=== PATIENT | male | born 1930 | race Caucasian/White ===

== ENCOUNTER 2016-08-06 19:50 | Observation (INO) ==
[2016-08-06 22:39] LABS: Basophils % 0.3 %; Hematocrit 50.5 % (37.5-50.1); Immature Granulocytes % 0.5 % (0-4); Lymphocytes # 1.6 K/mcL (0.6-4.6); Lymphocytes % 12.6 %; Mean Corpuscular HGB Conc 33.7 g/dL (31.6-35.5); Mean Corpuscular Hemoglobin 31.9 pg (28.0-33.3); Mean Corpuscular Volume 94.7 fL (83.0-100.0); Monocytes # 1.2 K/mcL (0.0-1.3); Monocytes % 9.7 %; Neutrophils # 9.8 K/mcL (1.6-8.9); Platelet Count 140 K/mcL (140-400); Red Blood Count 5.33 M/mcL (4.19-5.50); Red Cell Distribution Width 13.4 % (11.5-14.5); Segmented Neutrophils % 76.9 %
[2016-08-06 22:55] LABS: BUN/Creatinine Ratio 13 (6-26); Blood Urea Nitrogen 17 mg/dL (8-26); Calcium 9.2 mg/dL (8.6-10.8); Carbon Dioxide 22 mEq/L (19-29); Chloride 98 mEq/L (98-109); Glucose 139 mg/dL (70-99); Osmolality,Calculated 278 (280-300); Potassium 4.7 mEq/L (3.5-4.5); Sodium 132 mEq/L (136-145); eGFR For African Americans > 60 (> 60); eGFR For Non-African Americans 54 (> 60)
--- NOTE | 2016-08-06 23:15 | Emergency Department Note ---
Disposition Clinical Impression: Elevated troponin, Cough N&V (nausea and vomiting) Qualifiers: Vomiting type: unspecified Vomiting Intractability: non-intractable Qualified Code(s): R11.2 - Nausea with vomiting, unspecified Disposition: Admitted As Inpatient Condition: Good Time of Disposition: 01:32 General Adult HPI - General Chief complaint: ED Upper Respiratory Infection Stated complaint: Cough, unable to eat, body aches Time Seen by Provider: 08/06/16 23:01 Source: patient Nursing Notes Reviewed: Yes Vital Signs Reviewed: Yes - History of Present Illness HPI Narrative: 85-year-old male nonsmoker complains of one-week of cough, congestion and nausea and vomiting. He mentions during this time he has "lost his energy" has felt more weak. He describes feeling feverish and having chills. He describes his cough is nonproductive. He is accompanied by his daughter, who states that he appears to be more tired but she does not describe any worsening confusion. He denies any chest pain, diaphoresis, shortness of breath, extremity or neck pain, abdominal pain, bladder or bowel issues. Pain Scale: 0 - Related Data Allergies Allergy/AdvReac Type Severity Reaction Status Date / Time No Known Allergies Allergy Verified 08/06/16 20:25 All systems ED: reviewed and negative except as stated. Constitutional: Reports: chills, weakness Eyes: Denies: eye discharge ENT ED: Denies: ear pain, throat pain Cardiovascular: Denies: chest pain, palpitations Respiratory: Reports: as per HPI. Denies: wheezes, hemoptysis, stridor, sputum production Gastrointestinal: Reports: nausea, vomiting. Denies: diarrhea, constipation Genitourinary: Denies: dysuria Musculoskeletal: Denies: back pain, neck pain Integumentary: Denies: rash Neurological: Reports: as per HPI. Denies: headache Psychiatric: Reports: as per HPI Endocrine: Reports: as per HPI Hematological/Lymphatic: Reports: as per HPI Past Medical History - Past Medical History Medical history: Reports: coronary artery disease, hypertension Psychiatric history: Reports: no psych history - Social History Smoking Status: Never smoker Alcohol use: Reports: none Drug use: Reports: none Physical Exam - General General appearance: alert, in no apparent distress - Chest Chest inspection: Present: normal inspection - Respiratory Respiratory exam: Present: normal lung sounds bilaterally. Absent: respiratory distress, wheezes, stridor, accessory muscle use - Cardiovascular Cardiovascular exam: Present: regular rate, normal rhythm. Absent: bradycardia - Abdominal Exam Abdominal exam: Present: soft, Non-Tender - Extremities Exam Extremities exam: Present: normal inspection, full ROM, normal capillary refill. Absent: pedal edema - Back Exam Back exam: Present: normal inspection, full ROM. Absent: tenderness - Neurological Exam Neurological exam: Present: alert - Expanded Neurological Exam Patient oriented to: Present: person, place - Psychiatric Psychiatric exam: Present: normal affect, normal mood - Skin Skin exam: Present: warm, dry, intact, normal color. Absent: rash, cyanosis, diaphoresis, erythema, pallor, mottled, other Course Course Narrative: 85-year-old male nonsmoker presents from home with one week of weakness cough congestion nausea and vomiting and feeling feverish. Patient seen and examined, he does not appear in acute distress, does not look toxic. He is resting comfortably on exam bed, no labored breathing. On examination patient is a well-developed well-nourished elderly male, he is very pleasant and is admitted. He is alert and oriented to self and location, he is not sure what it is, but states that this is because he is old and has no schedule commitments. There is no cyanosis or diaphoresis. Lung sounds are coarse, with mild bilateral wheezing. Heart regular rate and rhythm. Abdomen soft and nontender with normal bowel sounds. Pelvis stable and nontender to palpation and compression. No gross focal neurological deficits, or concerning altered mental status. No extremity edema. Workup has been ordered. No ST changes on EKG in triage. - Reevaluation(s) Reevaluation #1: Labwork shows hyperkalemia however patient has had elevated potassium in the past. His sodium today is 132. Patient does have an elevated troponin. However his creatinine is also elevated at 1.26. Patient denies any history of lung disease, diabetes or chronic kidney disease, chest pain, diaphoresis, shortness of breath. Past medical history includes hypertension coronary artery disease with heart attack. Patient states he sees Dr. Victoria. Current medications included Sorbide , losartan, lovastatin, and aspirin. Aspirin and coags ordered. Discussed patient with Dr. Stanton, who agreed for admission for elevated troponin and CK, and nausea vomiting weakness Time: 00:21 Reevaluation #2: Patient had received DuoNeb, states his cough feels better. Lung sounds still coarse, wheezing improved. Vital stable. Patient has been discussed with close Dr. Stanley who had accepted patient. Time: 01:34 Vital Signs Temperature 97.6 F 08/06/16 20:19 Pulse Rate 87 08/06/16 20:19 Respiratory Rate 20 08/06/16 20:19 Blood Pressure 150/72 08/06/16 20:19 O2 Sat by Pulse Oximetry 94 L 08/06/16 20:19 Temperature 98.3 F 08/07/16 03:24 Pulse Rate 77 08/07/16 03:24 Respiratory Rate 16 08/07/16 03:24 Blood Pressure 120/65 08/07/16 03:24 O2 Sat by Pulse Oximetry 90 L 08/07/16 03:41 Oxygen Delivery Oxygen Delivery Room Air Medical Decision Making - MDM Narrative Medical decision making narrative: Patient is a 85-year-old male who presents with recent onset of weakness cough, nausea, vomiting. He did describe himself having fevers and feeling weak point where he cannot walk at home. He was seen and evaluated by myself, discussed patient with Dr. Tinoco also at this time with palpation. On exam patient was resting comfortably throughout his course in the department, his vitals in stable, and his pulse ox on arrival was 96. Fluctuated between 93 and 96 during his course here. He is a nonsmoker with no history of smoking, COPD or asthma. Hip 2 view chest x-ray which was normal. He had mild wheezing bilaterally on examination with coarse lung sounds. He did have improvement after breathing treatment. He denied any abdominal pain chest pain diaphoresis or exertional component of the symptoms, head and neck pain. Workup showed slight elevation of white blood cell count, hyperkalemia, hyponatremia, elevated creatinine, and elevated troponin. No acute changes on EKG. Patient was discussed with and accepted hospitalist service. All Lab Results (24 Hours) 08/06/16 08/06/16 08/06/16 Range/Units 22:28 22:28 22:28 WBC 12.7 H (4.3-11.1) K/mcL RBC 5.33 (4.19-5.50) M/mcL Hgb 17.0 H (12.9-16.9) g/dL Hct 50.5 H (37.5-50.1) % MCV 94.7 (83.0-100.0) fL MCH 31.9 (28.0-33.3) pg MCHC 33.7 (31.6-35.5) g/dL RDW 13.4 (11.5-14.5) % Plt Count 140 (140-400) K/mcL MPV 10.0 (9.4-12.4) fL Immature Gran % 0.5 (0-4) % Seg Neutrophils % 76.9 % Lymphocytes % 12.6 % Monocytes % 9.7 % Eosinophils % 0.0 % Basophils % 0.3 % Neutrophils # 9.8 H (1.6-8.9) K/mcL Lymphocytes # 1.6 (0.6-4.6) K/mcL Monocytes # 1.2 (0.0-1.3) K/mcL Eosinophils # 0.0 (0.0-0.6) K/mcL Basophils # 0.0 (0.0-0.2) K/mcL ESR (0-10) mm/hr PT (9.4-12.1) Seconds INR APTT (26.0-36.0) Seconds VBG pH (7.32-7.42) pH Units VBG pCO2 (41-51) mmHg VBG pO2 (25-40) mmHg VBG HCO3 (21-27) mEq/L Sodium 132 L (136-145) mEq/L Potassium 4.7 H (3.5-4.5) mEq/L Chloride 98 (98-109) mEq/L Carbon Dioxide 22 (19-29) mEq/L BUN 17 (8-26) mg/dL Creatinine 1.26 H (0.72-1.25) mg/dL Est GFR ( Amer) > 60 (> 60) Est GFR (Non-Af Amer) 54 L (> 60) BUN/Creatinine Ratio 13 (6-26) Glucose 139 H (70-99) mg/dL Calculated Osmolality 278 L (280-300) Calcium 9.2 (8.6-10.8) mg/dL Ionized Calcium (1.15-1.35) mmol/L Phosphorus (2.3-4.7) mg/dL Magnesium (1.6-2.6) mg/dL Total Bilirubin (0.2-1.2) mg/dL AST (5-34) Units/L ALT (0-55) Units/L Alkaline Phosphatase (38-126) Units/L Creatine Kinase (30-200) Units/L Troponin I 0.06 H* (0-0.03) ng/mL B-Natriuretic Peptide (0-100) pg/mL Serum Total Protein (6.0-8.3) g/dL Albumin (3.5-5.0) g/dL Globulin (2.4-3.5) g/dL Albumin/Globulin Ratio (1.1-2.2) 08/06/16 08/06/16 08/07/16 Range/Units 23:51 23:51 06:30 WBC (4.3-11.1) K/mcL RBC (4.19-5.50) M/mcL Hgb (12.9-16.9) g/dL Hct (37.5-50.1) % MCV (83.0-100.0) fL MCH (28.0-33.3) pg MCHC (31.6-35.5) g/dL RDW (11.5-14.5) % Plt Count (140-400) K/mcL MPV (9.4-12.4) fL Immature Gran % (0-4) % Seg Neutrophils % % Lymphocytes % % Monocytes % % Eosinophils % % Basophils % % Neutrophils # (1.6-8.9) K/mcL Lymphocytes # (0.6-4.6) K/mcL Monocytes # (0.0-1.3) K/mcL Eosinophils # (0.0-0.6) K/mcL Basophils # (0.0-0.2) K/mcL ESR 8 (0-10) mm/hr PT 13.3 H (9.4-12.1) Seconds INR 1.2 APTT 30.1 (26.0-36.0) Seconds VBG pH (7.32-7.42) pH Units VBG pCO2 (41-51) mmHg VBG pO2 (25-40) mmHg VBG HCO3 (21-27) mEq/L Sodium (136-145) mEq/L Potassium (3.5-4.5) mEq/L Chloride (98-109) mEq/L Carbon Dioxide (19-29) mEq/L BUN (8-26) mg/dL Creatinine (0.72-1.25) mg/dL Est GFR ( Amer) (> 60) Est GFR (Non-Af Amer) (> 60) BUN/Creatinine Ratio (6-26) Glucose (70-99) mg/dL Calculated Osmolality (280-300) Calcium (8.6-10.8) mg/dL Ionized Calcium (1.15-1.35) mmol/L Phosphorus (2.3-4.7) mg/dL Magnesium (1.6-2.6) mg/dL Total Bilirubin (0.2-1.2) mg/dL AST (5-34) Units/L ALT (0-55) Units/L Alkaline Phosphatase (38-126) Units/L Creatine Kinase (30-200) Units/L Troponin I (0-0.03) ng/mL B-Natriuretic Peptide 554 H (0-100) pg/mL Serum Total Protein (6.0-8.3) g/dL Albumin (3.5-5.0) g/dL Globulin (2.4-3.5) g/dL Albumin/Globulin Ratio (1.1-2.2) 08/07/16 08/07/16 08/07/16 Range/Units 06:30 06:30 06:30 WBC (4.3-11.1) K/mcL RBC (4.19-5.50) M/mcL Hgb (12.9-16.9) g/dL Hct (37.5-50.1) % MCV (83.0-100.0) fL MCH (28.0-33.3) pg MCHC (31.6-35.5) g/dL RDW (11.5-14.5) % Plt Count (140-400) K/mcL MPV (9.4-12.4) fL Immature Gran % (0-4) % Seg Neutrophils % % Lymphocytes % % Monocytes % % Eosinophils % % Basophils % % Neutrophils # (1.6-8.9) K/mcL Lymphocytes # (0.6-4.6) K/mcL Monocytes # (0.0-1.3) K/mcL Eosinophils # (0.0-0.6) K/mcL Basophils # (0.0-0.2) K/mcL ESR (0-10) mm/hr PT (9.4-12.1) Seconds INR APTT (26.0-36.0) Seconds VBG pH 7.31 L (7.32-7.42) pH Units VBG pCO2 61 H (41-51) mmHg VBG pO2 16 L (25-40) mmHg VBG HCO3 30.7 H (21-27) mEq/L Sodium 133 L (136-145) mEq/L Potassium 4.4 (3.5-4.5) mEq/L Chloride 98 (98-109) mEq/L Carbon Dioxide 23 (19-29) mEq/L BUN 21 (8-26) mg/dL Creatinine 1.46 H (0.72-1.25) mg/dL Est GFR ( Amer) 55 L (> 60) Est GFR (Non-Af Amer) 46 L (> 60) BUN/Creatinine Ratio 14 (6-26) Glucose 109 H (70-99) mg/dL Calculated Osmolality 280 (280-300) Calcium 9.0 (8.6-10.8) mg/dL Ionized Calcium 1.11 L (1.15-1.35) mmol/L Phosphorus 4.0 (2.3-4.7) mg/dL Magnesium 1.9 (1.6-2.6) mg/dL Total Bilirubin 1.4 H (0.2-1.2) mg/dL AST 33 (5-34) Units/L ALT 14 (0-55) Units/L Alkaline Phosphatase 73 (38-126) Units/L Creatine Kinase 543 H (30-200) Units/L Troponin I 0.06 H* (0-0.03) ng/mL B-Natriuretic Peptide (0-100) pg/mL Serum Total Protein 7.3 (6.0-8.3) g/dL Albumin 3.7 (3.5-5.0) g/dL Globulin 3.6 H (2.4-3.5) g/dL Albumin/Globulin Ratio 1.0 L (1.1-2.2) Chest X-Ray 08/06/16 20:26 IMPRESSION: 1. No acute abnormality. D/ / Moody Stanford MD / Moody Stanford MD Interpreting Provider: Moody tSanford MD - Lab Data Lab results reviewed: Yes I reviewed the patient's lab results. Result diagrams: 08/06/16 22:28 08/07/16 06:30 Lab Results 08/06/16 08/06/16 08/06/16 Range/Units 22:28 22:28 22:28 WBC 12.7 H (4.3-11.1) K/mcL RBC 5.33 (4.19-5.50) M/mcL Hgb 17.0 H (12.9-16.9) g/dL Hct 50.5 H (37.5-50.1) % MCV 94.7 (83.0-100.0) fL MCH 31.9 (28.0-33.3) pg MCHC 33.7 (31.6-35.5) g/dL RDW 13.4 (11.5-14.5) % Plt Count 140 (140-400) K/mcL MPV 10.0 (9.4-12.4) fL Immature Gran % 0.5 (0-4) % Seg Neutrophils % 76.9 % Lymphocytes % 12.6 % Monocytes % 9.7 % Eosinophils % 0.0 % Basophils % 0.3 % Neutrophils # 9.8 H (1.6-8.9) K/mcL Lymphocytes # 1.6 (0.6-4.6) K/mcL Monocytes # 1.2 (0.0-1.3) K/mcL Eosinophils # 0.0 (0.0-0.6) K/mcL Basophils # 0.0 (0.0-0.2) K/mcL PT (9.4-12.1) Seconds INR APTT (26.0-36.0) Seconds Sodium 132 L (136-145) mEq/L Potassium 4.7 H (3.5-4.5) mEq/L Chloride 98 (98-109) mEq/L Carbon Dioxide 22 (19-29) mEq/L BUN 17 (8-26) mg/dL Creatinine 1.26 H (0.72-1.25) mg/dL Est GFR ( Amer) > 60 (> 60) Est GFR (Non-Af Amer) 54 L (> 60) BUN/Creatinine Ratio 13 (6-26) Glucose 139 H (70-99) mg/dL Calculated Osmolality 278 L (280-300) Calcium 9.2 (8.6-10.8) mg/dL Troponin I 0.06 H* (0-0.03) ng/mL B-Natriuretic Peptide (0-100) pg/mL 08/06/16 08/06/16 Range/Units 23:51 23:51 WBC (4.3-11.1) K/mcL RBC (4.19-5.50) M/mcL Hgb (12.9-16.9) g/dL Hct (37.5-50.1) % MCV (83.0-100.0) fL MCH (28.0-33.3) pg MCHC (31.6-35.5) g/dL RDW (11.5-14.5) % Plt Count (140-400) K/mcL MPV (9.4-12.4) fL Immature Gran % (0-4) % Seg Neutrophils % % Lymphocytes % % Monocytes % % Eosinophils % % Basophils % % Neutrophils # (1.6-8.9) K/mcL Lymphocytes # (0.6-4.6) K/mcL Monocytes # (0.0-1.3) K/mcL Eosinophils # (0.0-0.6) K/mcL Basophils # (0.0-0.2) K/mcL PT 13.3 H (9.4-12.1) Seconds INR 1.2 APTT 30.1 (26.0-36.0) Seconds Sodium (136-145) mEq/L Potassium (3.5-4.5) mEq/L Chloride (98-109) mEq/L Carbon Dioxide (19-29) mEq/L BUN (8-26) mg/dL Creatinine (0.72-1.25) mg/dL Est GFR ( Amer) (> 60) Est GFR (Non-Af Amer) (> 60) BUN/Creatinine Ratio (6-26) Glucose (70-99) mg/dL Calculated Osmolality (280-300) Calcium (8.6-10.8) mg/dL Troponin I (0-0.03) ng/mL B-Natriuretic Peptide 554 H (0-100) pg/mL - Radiology Data Radiology results reviewed: Yes I reviewed the patient's radiology results. Normal 2 view chest x-ray, no evidence of acute cardiopulmonary concerns - EKG Data EKG #1 EKG attestation: Yes I reviewed and interpreted this EKG. EKG results narrative: Normal sinus rhythm with occasional SVPCs, ventricular rate 88 bpm, nonspecific T-wave abnormalities; no acute ST changes, EKG compared to previous from 2010 Attestation Statement - Attestation Attestation: I, Rubio Tinoco MD, personally performed a history and physical exam of the patient and discussed their management with the midlevel provicer, [employer]. I reviewed the midlevel provider's note and agree with the documented findings, medical decision making, and plan of care. 85-year-old male presents to the emergency department with a complaint of a mild cough and mild congestion for about the past week. Over the past 3-4 days he has had nausea and vomiting and not able to keep anything down. He also complains of generalized weakness over the past several days to the point that he is having difficulty walking. He denies any chest pain. No significant shortness of breath. No fever. On examination patient is a well-developed well-nourished elderly male in no acute distress. He is alert and oriented 3. There is no cyanosis or diaphoresis. Breath sounds are equal bilaterally. Heart regular. Abdomen soft and nontender with normal bowel sounds. Labs reviewed. Patient noted to have an elevated troponin. No acute changes on EKG and unchanged from prior EKGs. The hospitalist, Dr. Stanley, was consulted and accepted admission of the patient.
[2016-08-06] MEDS ORDERED: Aspirin 81 MG TAB.CHEW PO ONE (23:37)
[2016-08-06] MEDS ORDERED: *HR* Morphine 2 MG/ML SYRINGE IVP ONE (23:37)
[2016-08-06] MEDS ORDERED: Ondansetron 4 MG/2 ML VIAL IVP ONE (23:37)
[2016-08-06] MEDS ORDERED: Ipratropium/Albuterol Neb 3 ML IH ONE (23:39)
[2016-08-07 00:07] LABS: INR 1.2; Prothrombin Time 13.3 Seconds (9.4-12.1)
[2016-08-07 00:10] LABS: Activated Partial Thrombo Time 30.1 Seconds (26.0-36.0)
--- NOTE | 2016-08-07 01:40 | Internal Med History&Physical ---
Date of Encounter: 08/07/16 Time of Encounter: 03:00 Assessment and Plan (1) Body aches Current visit: Yes Status: Acute . (2) Cough Current visit: Yes Status: Acute . (3) N&V (nausea and vomiting) Current visit: Yes Status: Acute . Qualifiers: Vomiting type: unspecified Vomiting Intractability: non-intractable Qualified Code(s): R11.2 - Nausea with vomiting, unspecified (4) Malaise and fatigue Current visit: Yes Status: Acute . Internal Medicine - H&P: HPI Chief complaint: Cough. Bodyaches. Unable to eat. Admitted From: Emergency Dept Plans for Post Hospital Care: Home History of present illness: Mr. 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 Patient has experienced subjective fever, chills and nausea, vomiting during this same period of time. Has been nonproductive. Family suggests some gradually worsening confusion also present. Patient denies headache and neck ache chest pain and abdominal pain and flank pain. Vital signs noted resting hypoxemia at 93-94% on room air. Mild tachypnea at 20. Afebrile at 97.6 degrees Fahrenheit. BP 150/72 pulse 87. Auditory noted a white blood cell count of 12.7. Hemoglobin 17 hematocrit 50.5. Differential showed an increase in neutrophils. Basic metabolic panel noted a sodium of 132 potassium 4.7. BUN 17 creatinine of 1.26 GFR 54. Glucose 139 osmolality 278. Troponin 0.06. BNP 554. PT 13.6 INR 1.2 PTT 30.1. Chest x-ray demonstrated no acute active cardiopulmonary process. Bibasilar scarring noted. Cardiac silhouette is stable status post median sternotomy and CABG. No pneumothorax, pleural effusion or pulmonary vascular congestion. Osseous structures are benign. Systemic inflammatory response syndrome criteria and on that at the time of admission. Persistent upper respiratory lower respiratory complaints suggest possible community-acquired atypical or viral infectious process. Patient is not current with influenza and pneumococcal vaccinations. Sick contacts cannot be validated. Screening studies to suggest a degree of demand ischemia in myocardium with troponin elevation and associated hypoxia and possible AK I/CK D due to hypoperfusion. Hyponatremic hypoosmolality noted. Workup and treatments will proceed comprehensively. The patient was visited and interviewed and examined. Cumulative laboratory and radiographic data base will be considered and discussed. Pertinent ancillary medical records including ECW and PCI documentation when available was reviewed and considered. Given the patient's presenting concerns, past medical history, clinical findings and symptoms, he is admitted at this time will undergo further evaluation and disposition. Orders were written as per Computerized physician service order expediter system.......................................................................... .................... Consultative opinion will be sought as clinical circumstances justify. Pain management needs will be addressed. Laboratory /radiographic data base will be updated as appropriate. Studies include: Cultures blood urine sputum, pt/inr, aptt, ddimer, cardiac injury panel , BNP, UA, metabolic and hematologic panel, magnesium ,phosphorus, ionized calcium, thyroid panel, lipid profile, A1c, C-peptide, CRP, sedimentation rate, respiratory infection profile, respiratory virus panel, blood gas, lactic acid, serologies, etc. Precautions: Aspiration, fall, delirium protocol/surveillance initiated. Telemetry with continuous hemodynamic monitoring and pulse oximetry initiated. Empiric antibiotic coverage: Intravenous Rocephin and azithromycin pending culture data. Special studies: CT chest, chest x-ray, telemetry, EKG, 2D echo. Pulmonary toilet: Incentive spirometry, aerosol bronchodilator, mucolytic, antitussive, supplemental oxygen. Corticosteroid therapy. CPAP/BiPAP supplemental oxygen delivery. Aerosol Mucomyst therapy. Fluid and electrolyte repletion efforts will proceed. Careful attention to fluid balance and renal recovery will be emphasized. Avoidance of nephrotoxic exposure and adverse drug drug interaction in the setting of impaired renal function will be monitored closely. Acute coronary syndrome protocol/surveillance initiated. Includes: aspirin, statin, beta raoul, RAY inhibitor, nitrates, Lovenox, morphine, supplemental oxygen. Acute heart failure protocol/surveillance initiated. 1500-1800mls total fluid / 24hrs restriction. No added salt/cardiac diet. Strict input and output and daily weights. Gentle diuresis as tolerated per fluid balance and stable hemodynamics. DVT and PUD prophylaxis initiated: PPI therapy, intermittent pneumatic cuffs. Subcutaneous heparin/Lovenox. Early ambulation will be encouraged. Immunization updates recommended. Influenza and pneumococcal vaccinations as part of ongoing preventative healthcare recommendations strongly recommended. Smoke cessation counseling briefly addressed. Patient is a nonsmoker. Advanced care directive discussion briefly addressed. Patient does not declare any healthcare restrictions at this time. Cardiovascular risk appraisal and cardiovascular risk reduction efforts will be emphasized. Physical /occupational therapy may be counseled to evaluate patient's functional capacity and progress mobility as circumstances justify. Nutrition/dietary education counseling may be considered as circumstances justify. Outpatient medication schedules will be reviewed, confirmed and facilitated as appropriate. Reconciliation of home treatments including adjustments, substitutions and reintroduction into the treatment regimen will address necessary maintenance therapies for chronic pre-existing medical conditions. Plan of care has been reviewed and discussed in detail with the patient. Questions addressed. Hospital course dictated by clinical findings, treatment response and potential consultative interventions. Patient is a risk for further acute clinical decline due to his age, chief complaints and comorbid conditions. Condition is serious. Prognosis is guarded. CODE STATUS is full. Past Med Surg Social Fam HX - Past Medical History Source: old records reviewed Medical history: arthritis, cardiomyopathy (Isch CMP LVEF 45%), CHF, coronary artery disease, hyperlipidemia, hypertension, myocardial infarction, other Psychiatric history: no psych history - Past Surgical History Surgical History: angioplasty/stent, cholecystectomy, coronary bypass (CABG), herniorrhaphy (Right inguinal x2. ) - Social History Smoking Status: Never smoker Alcohol use: none Drug use: none Occupational status: retired Current living situation: Home, With Family Activity Level: Independent ambulation, Mostly sedentary Recent Out of Country Travel Within the Last 8 Weeks: No Exposure or Possible Exposure to Illness During Travel: No Internal Medicine - H&P: Meds Allergies No Known Allergies Allergy (Verified 08/06/16 20:25) All Systems PM: A 10-system review of systems was performed and is negative for pertinent findings except as documented above in the HPI. Patient Problems (Last Updated 08/07/16 @ 01:40 by Dayton Stanley MD) Body aches (Acute Medical) R52 Cough (Acute Medical) R05 Elevated troponin (Acute Medical) R74.8 Malaise and fatigue (Acute Medical) R53.81, R53.83 N&V (nausea and vomiting) (Acute Medical) R11.2 - Constitutional Constitutional: as per HPI, anorexia, chills, fatigue, fever(s), malaise, weakness, other, no night sweats - EENT Eyes: as per HPI, no change in vision, no discharge, no pain, no photophobia Ears: as per HPI, no ear discharge, no ear pain, no tinnitus Nose, mouth and throat: as per HPI, nasal congestion, post-nasal drip, other, no dysphagia, no nasal discharge, no neck pain, no sore throat - Cardiovascular Cardiovascular ROS IM: as per HPI, lightheadedness, other, no chest pain, no diaphoresis, no dyspnea, no palpitations, no syncope - Respiratory Respiratory: as per HPI, cough, dyspnea, dyspnea on exertion, wheezing, chest congestion, other, no hemoptysis, no stridor, no pain on inspiration, no excessive phlegm production - Gastrointestinal Gastrointestinal: as per HPI, no abdominal pain, no diarrhea, no hematemesis, no hematochezia, no melena, no nausea, no vomiting - Genitourinary Genitourinary ROS male: as per HPI - Musculoskeletal Musculoskeletal ROS IM: as per HPI - Integumentary Integumentary IM: as per HPI, no rash, no unusual bruising - Neurological Neurological ROS: as per HPI, confusion, weakness, other, no convulsions, no focal weakness, no numbness, no tingling, no tremor(s) - Psychiatric Psychiatric: as per HPI - Endocrine Endocrine IM: as per HPI - Hematologic/Lymphatic Hematologic/Lymphatic: as per HPI, other, no easy bruising - Allergic/Immunologic Allergic/Immunologic: as per HPI - Constitutional Vitals: Temp Pulse Resp BP Pulse Ox 97.6 F 89 15 158/84 93 L 08/06/16 20:19 08/07/16 01:09 08/07/16 01:09 08/07/16 01:09 08/07/16 01:09 Vital Signs Temp Pulse Resp BP Pulse Ox 08/07/16 01:09 89 15 158/84 93 L 08/07/16 01:08 89 14 135/94 93 L 08/07/16 00:58 17 98 08/06/16 22:25 87 20 150/72 94 L 08/06/16 20:19 97.6 F 87 20 150/72 94 L Intake and Output 08/06/16 08/06/16 08/07/16 15:59 23:59 07:59 Other: Weight 86.183 kg Allergies Allergy/AdvReac Type Severity Reaction Status Date / Time No Known Allergies Allergy Verified 08/06/16 20:25 General appearance: Present: mild distress, A&O X 3, answers questions appropriately - Head Head exam: Present: atraumatic, normocephalic - Eye Eye exam: Present: EOMI, PERRL, conjuntiva pink, sclera anicteric Pupils: Present: normal accommodation, PERRL - ENT ENT exam: Present: mucous membranes moist, normal oropharynx - Neck Neck exam general surgery: Present: full ROM, supple, trachea midline. Absent: lymphadenopathy - Respiratory Respiratory exam: Present: chest wall tenderness, decreased breath sounds, CTAB , wheezes. Absent: accessory muscle use, rales, rhonchi - Cardiovascular Cardiovascular exam: Present: distant heart sounds, RRR, +S1, +S2. Absent: diastolic murmur, gallop, rubs, systolic murmur - GI/Abdominal GI/Abdominal exam: Present: normal bowel sounds, soft, no peritoneal signs. Absent: distended, tenderness - Extremities Exam Extremities exam: Present: warm, radial pulses palpable and symetrical. Absent : calf tenderness, cyanotic, pedal edema - Neurological Exam Neurological exam: Present: alert, CN II-XII intact, oriented X3, no focal deficits. Absent: pronater drift, facial droop, speech deficit - Psychiatric Psychiatric exam: Present: normal affect, normal mood - Skin Skin exam: Present: dry, intact, warm Internal Med - H&P Results - Labs CBC & Chem 7: 08/06/16 22:28 08/06/16 22:28 Labs: Short CBC 08/06/16 Range/Units 22:28 WBC 12.7 H (4.3-11.1) K/mcL Hgb 17.0 H (12.9-16.9) g/dL Hct 50.5 H (37.5-50.1) % Plt Count 140 (140-400) K/mcL Neutrophils # 9.8 H (1.6-8.9) K/mcL BMP 08/06/16 22:28 Sodium 132 L Potassium 4.7 H Chloride 98 Carbon Dioxide 22 BUN 17 Creatinine 1.26 H Glucose 139 H Calcium 9.2 Cardiac Enzymes 08/06/16 Range/Units 22:28 Troponin I 0.06 H* (0-0.03) ng/mL Abnormal lab results WBC 12.7 K/mcL (4.3-11.1) H 08/06/16 22:28 Hgb 17.0 g/dL (12.9-16.9) H 08/06/16 22:28 Hct 50.5 % (37.5-50.1) H 08/06/16 22:28 Neutrophils # 9.8 K/mcL (1.6-8.9) H 08/06/16 22:28 PT 13.3 Seconds (9.4-12.1) H 08/06/16 23:51 Sodium 132 mEq/L (136-145) L 08/06/16 22:28 Potassium 4.7 mEq/L (3.5-4.5) H 08/06/16 22:28 Creatinine 1.26 mg/dL (0.72-1.25) H 08/06/16 22:28 Est GFR (Non-Af Amer) 54 (> 60) L 08/06/16 22:28 Glucose 139 mg/dL (70-99) H 08/06/16 22:28 Calculated Osmolality 278 (280-300) L 08/06/16 22:28 Troponin I 0.06 ng/mL (0-0.03) H* 08/06/16 22:28 B-Natriuretic Peptide 554 pg/mL (0-100) H 08/06/16 23:51 Laboratory Last Values WBC 12.7 K/mcL (4.3-11.1) H 08/06/16 22:28 RBC 5.33 M/mcL (4.19-5.50) 08/06/16 22:28 Hgb 17.0 g/dL (12.9-16.9) H 08/06/16 22:28 Hct 50.5 % (37.5-50.1) H 08/06/16 22:28 MCV 94.7 fL (83.0-100.0) 08/06/16 22: MCH 31.9 pg (28.0-33.3) 08/06/16 22: MCHC 33.7 g/dL (31.6-35.5) 08/06/16 22:28 RDW 13.4 % (11.5-14.5) 08/06/16 22:28 Plt Count 140 K/mcL (140-400) 08/06/16 22:28 MPV 10.0 fL (9.4-12.4) 08/06/16 22:28 Immature Gran % 0.5 % (0-4) 08/06/16 22: Seg Neutrophils % 76.9 % 08/06/16 22: Lymphocytes % 12.6 % 08/06/16 22: Monocytes % 9.7 % 08/06/16 22:28 Eosinophils % 0.0 % 08/06/16 22: Basophils % 0.3 % 08/06/16 22:28 Neutrophils # 9.8 K/mcL (1.6-8.9) H 08/06/16 22:28 Lymphocytes # 1.6 K/mcL (0.6-4.6) 08/06/16 22:28 Monocytes # 1.2 K/mcL (0.0-1.3) 08/06/16 22:28 Eosinophils # 0.0 K/mcL (0.0-0.6) 08/06/16 22:28 Basophils # 0.0 K/mcL (0.0-0.2) 08/06/16 22:28 PT 13.3 Seconds (9.4-12.1) H 08/06/16 23:51 INR 1.2 08/06/16 23:51 APTT 30.1 Seconds (26.0-36.0) 08/06/16 23:51 Sodium 132 mEq/L (136-145) L 08/06/16 22:28 Potassium 4.7 mEq/L (3.5-4.5) H 08/06/16 22:28 Chloride 98 mEq/L (98-109) 08/06/16 22:28 Carbon Dioxide 22 mEq/L (19-29) 08/06/16 22:28 BUN 17 mg/dL (8-26) 08/06/16 22:28 Creatinine 1.26 mg/dL (0.72-1.25) H 08/06/16 22:28 Est GFR ( Amer) > 60 (> 60) 08/06/16 22:28 Est GFR (Non-Af Amer) 54 (> 60) L 08/06/16 22:28 BUN/Creatinine Ratio 13 (6-26) 08/06/16 22:28 Glucose 139 mg/dL (70-99) H 08/06/16 22:28 Calculated Osmolality 278 (280-300) L 08/06/16 22:28 Calcium 9.2 mg/dL (8.6-10.8) 08/06/16 22:28 Troponin I 0.06 ng/mL (0-0.03) H* 08/06/16 22:28 B-Natriuretic Peptide 554 pg/mL (0-100) H 08/06/16 23:51 - Impressions ITS Impressions Chest X-Ray 08/06/16 20:26 IMPRESSION: 1. No acute abnormality. D/ / Moody Stanford MD / Moody Stanford MD Interpreting Provider: Moody Stanford MD - Attending Attestation Allergies No Known Allergies Allergy (Verified 08/06/16 20:25) I & O 08/04/16 08/05/16 08/06/16 08/07/16 23:59 23:59 23:59 23:59 Weight 86.183 kg Medications Discontinued Medications Albuterol/Ipratropium (Duoneb) 3 ml IH ONCE ONE PRN Reason: Protocol Stop: 08/06/16 23:40 Last Admin: 08/07/16 00:56 Dose: 3 ml Aspirin (Aspirin) 324 mg PO ONCE ONE Stop: 08/06/16 23:38 Last Admin: 08/07/16 01:11 Dose: 324 mg Morphine Sulfate (Morphine Sulfate) 2 mg IVP ONCE ONE Stop: 08/06/16 23:38 Last Admin: 08/07/16 01:10 Dose: 2 mg Ondansetron HCl (Zofran) 4 mg IVP ONCE ONE Stop: 08/06/16 23:38 Last Admin: 08/07/16 01:11 Dose: 4 mg Microbiology Results 08/06/16 20:40 Nasopharyngeal Influenza Types A,B Antigen (BEKA) - Final Orders 08/06/16 20:26 XR chest 2V [XR] Stat Mode Of Transportation: Stretcher Reason For Exam: cough, congestion, fever Order Doctor: Rubio Tinoco Exam Performed At:: [facility] ECG 12 lead ECG [ECG] Stat Mode Of Transportation: Portable Reason For Exam: cough, congestion Order Doctor: Rubio Tinoco Exam Performed At:: [facility] 08/06/16 20:27 12 lead ECG assessment [RC] NOW 08/06/16 20:40 Rapid Influenza [Influenza A/B Antigen] [VIR] Stat Comment: BEKA Source: Nasopharyngeal Specimen: Send someone from the department to collect Specimen Description: 08/06/16 22:28 CBC [Complete Blood Count] [HEME] Stat Comment: Specimen: Send someone from the department to collect Chem 7 [Basic Metabolic Panel] Stat Comment: Specimen: Send someone from the department to collect Troponin I Stat Comment: Specimen: Send someone from the department to collect 08/06/16 23:37 Cardiac monitoring [RC] .ONCE Obtain Old EKG [RC] .ONCE Saline lock [RC] .ONCE Supplemental oxygen titration [RC] .ONCE Physician Instructions: Vital Signs Assessment [RC] PROTOCOL Aspirin 324 mg PO ONCE ONE Morphine [Morphine Sulfate] 2 mg IVP ONCE ONE Ondansetron [Zofran] 4 mg IVP ONCE ONE 08/06/16 23:38 Urinalysis Reflex Cult & Micro [URIN] Stat Comment: Specimen: Pre-Collection Label 08/06/16 23:39 Ipratropium/Albuterol Neb [Duoneb] 3 ml IH ONCE ONE 08/06/16 23:51 Activated Partial Thrombo Time [COAG] Stat Comment: Specimen: Send someone from the department to collect B-Type Natriuretic Peptide Stat Comment: Specimen: Send someone from the department to collect Prothrombin Time INR [COAG] Stat Comment: Specimen: Send someone from the department to collect 08/07/16 00:[address] Stat Comment: Reason for Visit: elevated troponin, weakness Patient Problems (Last Updated 08/07/16 @ 01:32 by Gigi Philip PAC) Cough (Acute) Elevated troponin (Acute) N&V (nausea and vomiting) (Acute) Vital Signs Temp Pulse Resp BP Pulse Ox 08/07/16 01:09 89 15 158/84 93 L 08/07/16 01:08 89 14 135/94 93 L 08/07/16 00:58 17 98 08/06/16 22:25 87 20 150/72 94 L 08/06/16 20:19 97.6 F 87 20 150/72 94 L Laboratory Results 08/06/16 08/06/16 08/06/16 Range/Units 22:28 22:28 22:28 WBC 12.7 H (4.3-11.1) K/mcL RBC 5.33 (4.19-5.50) M/mcL Hgb 17.0 H (12.9-16.9) g/dL Hct 50.5 H (37.5-50.1) % MCV 94.7 (83.0-100.0) fL MCH 31.9 (28.0-33.3) pg MCHC 33.7 (31.6-35.5) g/dL RDW 13.4 (11.5-14.5) % Plt Count 140 (140-400) K/mcL MPV 10.0 (9.4-12.4) fL Immature Gran % 0.5 (0-4) % Seg Neutrophils % 76.9 % Lymphocytes % 12.6 % Monocytes % 9.7 % Eosinophils % 0.0 % Basophils % 0.3 % Neutrophils # 9.8 H (1.6-8.9) K/mcL Lymphocytes # 1.6 (0.6-4.6) K/mcL Monocytes # 1.2 (0.0-1.3) K/mcL Eosinophils # 0.0 (0.0-0.6) K/mcL Basophils # 0.0 (0.0-0.2) K/mcL PT (9.4-12.1) Seconds INR APTT (26.0-36.0) Seconds Sodium 132 L (136-145) mEq/L Potassium 4.7 H (3.5-4.5) mEq/L Chloride 98 (98-109) mEq/L Carbon Dioxide 22 (19-29) mEq/L BUN 17 (8-26) mg/dL Creatinine 1.26 H (0.72-1.25) mg/dL Est GFR ( Amer) > 60 (> 60) Est GFR (Non-Af Amer) 54 L (> 60) BUN/Creatinine Ratio 13 (6-26) Glucose 139 H (70-99) mg/dL Calculated Osmolality 278 L (280-300) Calcium 9.2 (8.6-10.8) mg/dL Troponin I 0.06 H* (0-0.03) ng/mL B-Natriuretic Peptide (0-100) pg/mL 08/06/16 08/06/16 Range/Units 23:51 23:51 WBC (4.3-11.1) K/mcL RBC (4.19-5.50) M/mcL Hgb (12.9-16.9) g/dL Hct (37.5-50.1) % MCV (83.0-100.0) fL MCH (28.0-33.3) pg MCHC (31.6-35.5) g/dL RDW (11.5-14.5) % Plt Count (140-400) K/mcL MPV (9.4-12.4) fL Immature Gran % (0-4) % Seg Neutrophils % % Lymphocytes % % Monocytes % % Eosinophils % % Basophils % % Neutrophils # (1.6-8.9) K/mcL Lymphocytes # (0.6-4.6) K/mcL Monocytes # (0.0-1.3) K/mcL Eosinophils # (0.0-0.6) K/mcL Basophils # (0.0-0.2) K/mcL PT 13.3 H (9.4-12.1) Seconds INR 1.2 APTT 30.1 (26.0-36.0) Seconds Sodium (136-145) mEq/L Potassium (3.5-4.5) mEq/L Chloride (98-109) mEq/L Carbon Dioxide (19-29) mEq/L BUN (8-26) mg/dL Creatinine (0.72-1.25) mg/dL Est GFR ( Amer) (> 60) Est GFR (Non-Af Amer) (> 60) BUN/Creatinine Ratio (6-26) Glucose (70-99) mg/dL Calculated Osmolality (280-300) Calcium (8.6-10.8) mg/dL Troponin I (0-0.03) ng/mL B-Natriuretic Peptide 554 H (0-100) pg/mL Assessments/Treatments Critical Value Reporting Start: 08/06/16 23: 28 Freq: Status: Active Document 08/06/16 23:28 TAB (Rec: 08/06/16 23:28 TAB [id number]) Critical Values Reporting Test(s) and Results trop 0.06 Time Results Received 23:25 Lab Results Repeated Back Yes Provider Notified Yes Time Provider Contacted 23:[address] Quintana Time Provider Responded 23:25 Number of Attempts to Reach Provider 1 ED URI/Sore Throat Assessment Start: 08/06/16 20: 25 Freq: Status: Complete Document 08/06/16 22:25 TAB (Rec: 08/06/16 23:14 TAB [id number]) URI/Sore Throat Sepsis Infection Criteria Present suspected infection Sepsis SIRS Criteria none Sepsis Screen No Definite Risk Sepsis Action Taken no action required Symptoms/Complaint Fever Cough Rhinorrhea Nasal Congestion Onset "about a week" Duration Constant Improves With Nothing Worsens With Nothing Able to Tolerate Fluids By Mouth No: "throwing up now, today it would stay downe\\" Associated Symptoms Rhinorrhea Nasal Congestion Sore Throat Cough Nausea Vomiting Treatments Prior to Arrival None Level Of Consciousness Awake Alert Appropriate Follows Commands Patient Orientation Person Place Name Age Date of Respiratory Depth Normal Respiratory Effort Non-Labored Respiratory Pattern Regular Cough Description Productive Frequency Intermittent Sputum Amount Scant ED Comment "sick for about a week, thought it would go away, but it keeps getting worse, can't keep anything down for the last couple of days" Patient Rounding Start: 08/06/16 20: 25 Freq: Q30M Status: Complete Document 08/06/16 22:25 TAB (Rec: 08/06/16 23:14 TAB [id number]) Patient Rounding Safety Call Light Within Reach Bed Position Low Bed Brake On Are the Floors Free From Trip Hazards? Yes Is the Room Free From Clutter? Yes Rounding Completed? Yes Patient Rounding Updated patient/family on Plan of Care Checked for Patient Positioning Patient Awake Document 08/07/16 01:08 TAB (Rec: 08/07/16 01:09 TAB [id number]) Patient Rounding Safety Call Light Within Reach Bed Position Low Bed Brake On Are the Floors Free From Trip Hazards? Yes Is the Room Free From Clutter? Yes Rounding Completed? Yes Patient Rounding Updated patient/family on Plan of Care Checked for Patient Positioning Patient Awake Document 08/07/16 01:09 TAB (Rec: 08/07/16 01:10 TAB [id number]) Patient Rounding Safety Call Light Within Reach Bed Position Low Bed Brake On Are the Floors Free From Trip Hazards? Yes Is the Room Free From Clutter? Yes Rounding Completed? Yes Patient Rounding Updated patient/family on Plan of Care Checked for Patient Positioning Patient Awake RT Respiratory Medication Delivery Start: 08/07/16 00: 58 Freq: Status: Active Document 08/07/16 00:58 JNL (Rec: 08/07/16 00:59 JNL [id number]) Respiratory Therapy Pre Assessment SPO2 (95-100) 98 Heart rate 83 Respiratory Rate 17 Oxygen Delivery Method Room Air FIO2 (%) 21 Throughout Breath Sounds Expiratory Rhonchi Treatment Modality Nebulizer Therapy Respiratory Medications Duoneb Medication Delivery Device Mask Treatment Tolerance Excellent Initial Aerosol/MDI/DPI* Yes Post RT Medication Delivery Post Heart rate 82 Post Respiratory Rate (breaths/min) 18 Throughout Post Breath Sounds Expiratory Rhonchi Treatment Outcome No Change RT Cough/Suction Cough Description Non-Productive Sputum Amount None Triage Start: 08/06/16 20: 19 Freq: Status: Active Document 08/06/16 20:19 ALS (Rec: 08/06/16 20:25 ALS [id number]) Triage Chief Complaint triage ED Upper Respiratory Infection Patient Stated Complaint cough, congestion, n/v. CASYE 3 Description of Symptoms C/O cough, congestion, n/v and feeling feverish, onset 1 week ago. General Appearance alert in no apparent distress Mode of arrival ambulatory Source patient Ebola Risk: Travel/Contact With Anyone No From Affected Area/s Has Patient Experienced Ebola Symptoms No Temperature (97.6 F-99.6 F) 97.6 F Temperature Source Oral Pulse Rate 87 Respiratory Rate 20 Blood Pressure 150/72 O2 Sat by Pulse Oximetry (95-100) 94 L Oxygen Delivery Room Air Height 1.78 m Weight 86.183 kg Weight Measurement Method Stated by Patient Pain Scale 0 Pain Scale Used Standard (1-10) Medical history coronary artery disease hypertension Female surgical history cholecystectomy Male surgical history coronary bypass (CABG) Additional surgical history PMH b/l inguinal hernia repairs Psychiatric history no psych history Smoking Status Never smoker Alcohol Use none Drug Use none Patient resides with/at Spouse Safety Concerns Feels Safe At This Time Do you currently feel hopless, have No thoughts of self harm, or thoughts of harming others History of fall in last 14 days? No Influenza vaccine up to date Yes Pneumonia vaccine up to date Yes Tetanus UTD yes Vital Signs Assessment Start: 08/06/16 20: 25 Freq: Status: Active Document 08/06/16 22:25 TAB (Rec: 08/06/16 23:14 TAB [id number]) ED Vital Signs Pain Reported No Pain Reported Pain Scale 0 Pain Scale Used Standard (1-10) Blood Pressure 150/72 Blood Pressure Location Left Arm Source Automatic Cuff Position HOB Elevated Pulse Rate 87 Rhythm Regular Strength Normal Respiratory Rate 20 Depth Normal Effort Non-Labored Pattern Regular Pulse Oximetry (95-100) 94 L Oxygen Delivery Room Air Vital Signs Assessment Start: 08/06/16 23: 37 Freq: PROTOCOL Status: Active Document 08/07/16 01:08 TAB (Rec: 08/07/16 01:09 TAB [id number]) ED Vital Signs Pain Reported No Pain Reported Pain Scale 0 Pain Scale Used Standard (1-10) Blood Pressure 135/94 Blood Pressure Location Right Arm Source Automatic Cuff Position HOB Elevated Pulse Rate 89 Rhythm Regular Strength Normal Respiratory Rate 14 Depth Normal Effort Non-Labored Pattern Regular Pulse Oximetry (95-100) 93 L Oxygen Delivery Room Air Document 08/07/16 01:09 TAB (Rec: 08/07/16 01:10 TAB [id number]) ED Vital Signs Pain Reported No Pain Reported Pain Scale 0 Pain Scale Used Standard (1-10) Blood Pressure 158/84 Blood Pressure Location Right Arm Source Automatic Cuff Position HOB Elevated Pulse Rate 89 Rhythm Regular Strength Normal Respiratory Rate 15 Depth Normal Effort Non-Labored Pattern Regular Pulse Oximetry (95-100) 93 L Oxygen Delivery Room Air Discharge Information ED Provider: Rubio Tinoco Status: Pending Admission Time Seen by Provider: 08/06/16 23:01 Condition: Triaged At: Emergency Discharge Date/Time: Emergency Discharge Disposition: Admitted As Inpatient Clinical Impression Elevated troponin Cough N&V (nausea and vomiting) Emergency Discharge Comment: Admit Intervention Last Done ED URI/Sore Throat Assessment 08/06/16 22:25 Query Result Sepsis Infection Criteria Present suspected infection Sepsis SIRS Criteria none Sepsis Screen No Definite Risk Sepsis Action Taken no action required URI/Sore Throat Symptoms/Complaint Fever Cough Rhinorrhea Nasal Congestion URI/Sore Throat Onset "about a week" URI/Sore Throat Duration Constant URI/Sore Throat Improves With Nothing URI/Sore Throat Worsens With Nothing Able to Tolerate Fluids By Mouth No: "throwing up now, today it would stay downe\\" URI/Sore Throat Associated Symptoms Rhinorrhea Nasal Congestion Sore Throat Cough Nausea Vomiting URI/Sore Throat Treatments Prior to None Arrival Level Of Consciousness Awake Alert Appropriate Follows Commands Patient Orientation Person Place Name Age Date of Respiratory Depth Normal Respiratory Effort Non-Labored Respiratory Pattern Regular Cough Description Productive Cough Frequency Intermittent Sputum Amount Scant ED Comment "sick for about a week, thought it would go away, but it keeps getting worse, can't keep anything down for the last couple of days" ED Discharge Assessment Instructions: Stand-Alone Forms: ED Satisfaction Letter Prescriptions: Visit Report - Forms: - Referrals: Gamal,Chan Underwood MD (Primary Care Provider) Radiology Results Chest X-Ray 08/06/16 20:26
[2016-08-07] MEDS ORDERED: *HR* Metoprolol 5 MG/5 ML VIAL IVP PRN (04:54)
[2016-08-07] MEDS ORDERED: Nitroglycerin 0.4 MG TAB.SUBL SL PRN (04:54)
[2016-08-07] MEDS ORDERED: Naloxone 0.4 MG/ML INJ IVP PRN (04:54)
[2016-08-07] MEDS ORDERED: *HR* Morphine 2 MG/ML SYRINGE IVP PRN (04:54)
[2016-08-07] MEDS ORDERED: methylPREDNISolone 125 MG/2 ML VIAL IVP STA (04:54)
[2016-08-07] MEDS ORDERED: Acetaminophen 325 MG TABLET PO PRN (04:54)
[2016-08-07] MEDS ORDERED: Bumetanide 1 MG/4 ML VIAL IVP ONE (04:54)
[2016-08-07] MEDS ORDERED: *HR* OxyCODONE Immed Rel 5 MG TABLET PO PRN ×2 (04:54→11:52)
[2016-08-07] MEDS ORDERED: Ondansetron 4 MG/2 ML VIAL IVP PRN (04:54)
[2016-08-07] MEDS ORDERED: Benzonatate 100 MG CAPSULE PO PRN (04:54)
[2016-08-07] MEDS ORDERED: Albuterol 2.5 MG/3 ML NEBULIZER IH PRN (04:54)
[2016-08-07] MEDS: 0.9 % Sodium Chloride 1,000 ML IVC SCH (05:36)
[2016-08-07] MEDS ORDERED: *HR* Enoxaparin 80 MG/0.8 ML SYRINGE SQ SCH (06:00)
[2016-08-07 06:48] LABS: VBG HCO3 30.7 mEq/L (21-27); VBG PH 7.31 pH Units (7.32-7.42)
[2016-08-07 06:49] LABS: Ionized Calcium 1.11 mmol/L (1.15-1.35)
[2016-08-07 07:02] LABS: Albumin 3.7 g/dL (3.5-5.0); Bilirubin,Total 1.4 mg/dL (0.2-1.2); Globulin 3.6 g/dL (2.4-3.5); Magnesium 1.9 mg/dL (1.6-2.6); Potassium 4.4 mEq/L (3.5-4.5); Total Protein 7.3 g/dL (6.0-8.3)
[2016-08-07] MEDS: Ipratropium/Albuterol Neb 3 ML IH SCH ×4 (07:35→22:08)
[2016-08-07] MEDS: Aspirin 81 MG TAB.CHEW PO SCH (08:49)
[2016-08-07] MEDS ORDERED: Bumetanide 1 MG/4 ML VIAL IVP SCH (09:00)
[2016-08-07 11:24] LABS: Adenovirus Not Detected (Not Detect); Bordetella Pertussis Not Detected (Not Detect); Chlamydophila pneumoniae Not Detected (Not Detect); Coronavirus 229E Not Detected (Not Detect); Coronavirus HKU1 Not Detected (Not Detect); Coronavirus NL63 Not Detected (Not Detect); Coronavirus OC43 Not Detected (Not Detect); Human Metapneumovirus Not Detected (Not Detect); Human Rhinovirus/Enterovirus Not Detected (Not Detect); Influenza A Subtype 2009 H1 Not Detected (Not Detect); Influenza A Untypeable Not Detected (Not Detect); Influenza B Not Detected (Not Detect); Mycoplasma pneumoniae Not Detected (Not Detect); Parainfluenza Virus 1 Not Detected (Not Detect); Parainfluenza Virus 2 Not Detected (Not Detect); Parainfluenza Virus 3 Not Detected (Not Detect); Parainfluenza Virus 4 Not Detected (Not Detect); Respiratory Syncytial Virus ***DETECTED*** (Not Detect)
--- NOTE | 2016-08-07 11:30 | ECHO - Doppler Report ---
Echocardiogram Name: Nile Jimenez Date of Study: 08/07/2016 Date: 1930 Ht: 70.0 in Medical Record#: [id number] Age: 85 Wt: 193.0 lb Gender: Male BSA: 2.06 Order #: [id number] Location: [facility] Room #: 2A24 Reading Physician: Arthur Roman MD, [facility] Chemical Laboratory Assistant: Richi Seth RN Ordering Physician: Dayton Stanley MD Primary Physician: Chan Yeung MD Indications: Acute Coronary Syndrome Impressions: Sinus rhythm with frequent PVCs. LVEF 55-60%. There is hypokinesis of the basal inferior and basal inferolateral nelson. Mild left ventricular diastolic dysfunction. Normal right ventricular size and function. Mildly dilated left atrium. Mildly dilated right atrium. No significant valvular dysfunction. No evidence of pulmonary hypertension. Left Ventricular Wall Motion: Rest Echo Findings The basal inferior and basal inferior lateral nelson were hypokinetic. All other wall segments showed normal motion. Findings: Study Quality * Technically adequate exam. ECG Findings * Sinus rhythm with frequent PVCs. Left Ventricle * LVEF 55-60%. There is hypokinesis of the basal inferior and basal inferolateral nelson. * Normal LV chamber size and wall thickness. * Mild left ventricular diastolic dysfunction. Right Ventricle * Normal right ventricular size and function. Left Atrium * Mildly dilated left atrium. Right Atrium * Mildly dilated right atrium. Aorta * Normally sized aortic root. Pericardium * There is no pericardial effusion present. IVC * The IVC was not visualized. Aortic Valve * Trileaflet aortic valve. * Mildly sclerotic aortic valve leaflets. * No aortic stenosis. * Trace aortic regurgitation. Mitral Valve * Mild mitral annular calcification * No mitral stenosis. * Trace mitral regurgitation. Tricuspid Valve * Normal tricuspid valve structure. * No tricuspid stenosis. * Trace tricuspid regurgitation. * No evidence of pulmonary hypertension. Pulmonic Valve * Normal pulmonic valve structure. * No pulmonic stenosis. * Trace pulmonic regurgitation. 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 Measurements: BP: 138/ 72 2D Normal Values RVIDd: 3.40 cm IVSd: 1.00 cm 0.6 - 1.0 cm LVIDd: 5.50 cm 3.7 - 5.6 cm LVPWd: 1.00 cm 0.6 - 1.1 cm LVIDs: 3.80 cm 1.5 - 3.6 cm AO: 3.80 cm < 4.0 cm LA volume: 78 Mitral Valve Peak E:.55 m/sec Peak A:.78 m/sec E/A Ratio:0.7 Tricuspid Valve TV Regurg Peak Grad: 29.00mmHg TV Regurg Peak Manoj: 2.70m/sec Updated by Arthur Roman MD, [facility] on 08/07/2016 11:26:45 AM electronically signed on 08/07/2016 11:27:10 AM with status of Final Wall Motion Conde: 1=Normal, 2=Hypokinesis, 3=Akinesis, 4=Dyskinesis, 5=Aneurysmal, 6=Hyperkinetic, X=Not Visualized (Blank)=Missing
--- NOTE | 2016-08-07 13:25 | Event Note ---
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 CT chest shows right upper and lower lobe groundglass opacities concerning for pneumonia and also has emphysema. Echo shows normal LVEF with wall motion abnormalities which is not new. He was seen at the bedside with the daughter. He reports much improvement than yesterday, says that he has a better appetite today, denies any nausea, vomiting. still complaints of cough but denies any chest pain or shortness of breath at this time. He will be started on IV antibiotics for community-acquired pneumonia, influenza is negative, will check sputum for Gram stain and culture. There is mild elevation of the troponin which is adynamic on repeat testing. This is probably demand ischemia in the setting of pneumonia, will not do further testing.
[2016-08-07] MEDS: Azithromycin 500 MG in D5% in Water 250 ML IVPB SCH (14:32)
[2016-08-07] MEDS: *HR* Heparin 5,000 UNIT/ML VIAL SQ SCH (17:39)
--- NOTE | 2016-08-07 18:38 | Electrocardiograph Report ---
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
[2016-08-07] MEDS ORDERED: Dextromethorphan Polistrx(12h) 30 MG/5 ML UDC PO SCH (21:00)
[2016-08-08] MEDS: Ipratropium/Albuterol Neb 3 ML IH SCH ×4 (05:15→22:31)
[2016-08-08 05:44] LABS: Chol/HDL Ratio 2.8 (0-4.9)
[2016-08-08] MEDS: *HR* Heparin 5,000 UNIT/ML VIAL SQ SCH ×2 (05:56→17:56)
[2016-08-08 06:28] LABS: Thyroid Stimulating Hormone 1.186 mcIU/mL (0.350-4.840)
[2016-08-08 08:11] LABS: Basophils % 0.2 %; Hematocrit 44.1 % (37.5-50.1); Hemoglobin 15.2 g/dL (12.9-16.9); Immature Granulocytes % 0.6 % (0-4); Immature Platelets 4.9 % (1.1-6.1); Lymphocytes # 1.3 K/mcL (0.6-4.6); Lymphocytes % 7.2 %; Mean Corpuscular HGB Conc 34.5 g/dL (31.6-35.5); Mean Corpuscular Hemoglobin 33.1 pg (28.0-33.3); Mean Corpuscular Volume 96.1 fL (83.0-100.0); Mean Platelet Volume 10.4 fL (9.4-12.4); Monocytes # 1.4 K/mcL (0.0-1.3); Monocytes % 7.3 %; Neutrophils # 15.6 K/mcL (1.6-8.9); Platelet Count 130 K/mcL (140-400); Red Blood Count 4.59 M/mcL (4.19-5.50); Red Cell Distribution Width 13.6 % (11.5-14.5); Segmented Neutrophils % 84.7 %
[2016-08-08 08:26] LABS: Calcium 8.6 mg/dL (8.6-10.8); Potassium 4.4 mEq/L (3.5-4.5)
[2016-08-08 08:50] LABS: Bilirubin,Urine Negative (Negative); Blood,Urine Negative (Negative); Clarity,Urine Clear (Clear); Color,Urine Yellow (Yellow); Glucose,Urine (UA) Normal (Normal); Ketones,Urine Negative (Negative); Leukocyte Esterase,Urine Negative (Negative); Nitrite,Urine Negative (Negative); PH,Urine 5.5 pH Units (5.0-8.0); Protein,Urine Negative (Neg-Trace); Specific Gravity,Urine 1.021 (1.010-1.025); Urobilinogen,Urine Normal (Normal)
[2016-08-08] MEDS: 0.9 % Sodium Chloride 1,000 ML IVC SCH (09:02)
[2016-08-08] MEDS: Isosorbide MONOnitrate (24 HR) 60 MG TAB.ER.24H PO SCH (09:03)
[2016-08-08] MEDS: Aspirin 81 MG TAB.CHEW PO SCH (09:04)
[2016-08-08] MEDS: Azithromycin 500 MG in D5% in Water 250 ML IVPB SCH (13:15)
--- NOTE | 2016-08-08 14:02 | Internal Med Progress Note ---
Date of Encounter: 08/07/16 Time of Encounter: 13:59 - Assessment and plan (1) RSV (respiratory syncytial virus pneumonia) Current Visit: Yes Status: Acute Assessment and plan: CT chest showed right upper and lower lobe GGO s/o pneumonia most likely 2/2 RSV positive for RSV. will continue the ceftriaxone and azithro for now. supprotive treatment for RSV pneumonia clinically improved, no fever or leucocytosis. possible dc tomm if stable (2) Community acquired pneumonia Current Visit: Yes Status: Acute Assessment and plan: as above (3) Emphysema lung Current Visit: Yes Status: Acute Assessment and plan: h/o emphysema , also evident on the CT chest continue duonebs as scheduled for today. stable for now Qualifiers: Emphysema type: unspecified Qualified Code(s): J43.9 - Emphysema, unspecified (4) Elevated troponin Current Visit: Yes Status: Acute Assessment and plan: demand ischemia in the setting of pneumonia. denies chest pain, no need for further intervention. - Time Spent With Patient 25 - 35 minutes - Subjective Interval history: seen at the bedside, report much improvement. mild cough ,denies chest pain or sob. - Constitutional Vitals: Temp Pulse Resp BP Pulse Ox 97.5 F L 74 18 93/50 92 08/08/16 11:32 08/08/16 11:32 08/08/16 11:32 08/08/16 11:32 08/08/16 11:32 General appearance: Present: A&O X 3, no acute distress, answers questions appropriately Exam: - Head Head exam: Present: atraumatic, normocephalic - Eye Eye exam: Present: EOMI, PERRL, conjuntiva pink, sclera anicteric Pupils: Present: normal accommodation, PERRL - ENT ENT exam: Present: mucous membranes moist, normal oropharynx - Neck Neck exam general surgery: Present: full ROM, supple, trachea midline. Absent: lymphadenopathy - Respiratory Respiratory exam: Present: b/l clear Absent: accessory muscle use, rales, rhonchi - Cardiovascular Cardiovascular exam: Present: distant heart sounds, RRR, +S1, +S2. Absent: diastolic murmur, gallop, rubs, systolic murmur - GI/Abdominal GI/Abdominal exam: Present: normal bowel sounds, soft, no peritoneal signs. Absent: distended, tenderness - Extremities Exam Extremities exam: Present: warm, radial pulses palpable and symetrical. Absent : calf tenderness, cyanotic, pedal edema - Neurological Exam Neurological exam: Present: alert, CN II-XII intact, oriented X3, no focal deficits. Absent: pronater drift, facial droop, speech deficit - Psychiatric Psychiatric exam: Present: normal affect, normal mood - Skin Skin exam: Present: dry, intact, warm Internal Medicine: Result - Labs CBC & Chem 7: 08/08/16 08:01 08/08/16 08:01 Labs: Short CBC 08/08/16 Range/Units 08:01 WBC 18.4 H (4.3-11.1) K/mcL Hgb 15.2 D (12.9-16.9) g/dL Hct 44.1 (37.5-50.1) % Plt Count 130 L (140-400) K/mcL Neutrophils # 15.6 H (1.6-8.9) K/mcL BMP 08/08/16 08:01 Sodium 133 L Potassium 4.4 Chloride 100 Carbon Dioxide 23 BUN 45 H D Creatinine 1.63 H Glucose 135 H Calcium 8.6 Urine 08/08/16 Range/Units 08:40 Urine Color Yellow (Yellow) Urine Clarity Clear (Clear) Urine pH 5.5 (5.0-8.0) pH Units Ur Specific [place] 1.021 (1.010-1.025) Urine Protein Negative (Neg-Trace) mg/dL Urine Glucose (UA) Normal (Normal) mg/dL - ABG Interpretation ABG results: PT/INR, D-dimer PT 13.3 Seconds (9.4-12.1) H 08/06/16 23:51 - Impressions Impressions Chest CT 08/07/16 09:30 IMPRESSION: 1. Right lower lobe ground-glass opacity and right upper lobe peribronchovascular ground-glass opacities. Differential includes pneumonia and pneumonitis. 2. Coronary artery disease and atherosclerosis. 3. Emphysema. D/ / 08/07/2016 11:27:47 Manjeet Lloyd MD / rosa elena Interpreting Provider: Manjeet Lloyd MD Consult Discharge Plan - Plan Referrals: Chan Yeung MD [Primary Care Provider] - 08/18/16 1:00 pm (Please follow up as schedule..)
[2016-08-08 15:53] LABS: Hemoglobin A1C 5.6 %
[2016-08-08 19:51] LABS: Bilirubin,Urine Negative (Negative); Blood,Urine Negative (Negative); Clarity,Urine Clear (Clear); Color,Urine Yellow (Yellow); Glucose,Urine (UA) Normal (Normal); Ketones,Urine Negative (Negative); Leukocyte Esterase,Urine Negative (Negative); Nitrite,Urine Negative (Negative); PH,Urine 5.5 pH Units (5.0-8.0); Protein,Urine Negative (Neg-Trace); Urobilinogen,Urine Normal (Normal)
[2016-08-09] MEDS: Ipratropium/Albuterol Neb 3 ML IH SCH (04:48)
[2016-08-09] MEDS: *HR* Heparin 5,000 UNIT/ML VIAL SQ SCH (05:42)
[2016-08-09 06:19] LABS: Basophils % 0.2 %; Eosinophils % 0.1 %; Hemoglobin 13.8 g/dL (12.9-16.9); Immature Granulocytes % 0.6 % (0-4); Lymphocytes % 16.8 %; Mean Corpuscular HGB Conc 33.7 g/dL (31.6-35.5); Mean Corpuscular Hemoglobin 32.4 pg (28.0-33.3); Mean Corpuscular Volume 96.2 fL (83.0-100.0); Mean Platelet Volume 10.9 fL (9.4-12.4); Monocytes # 0.9 K/mcL (0.0-1.3); Monocytes % 7.7 %; Platelet Count 137 K/mcL (140-400); Red Blood Count 4.26 M/mcL (4.19-5.50); Red Cell Distribution Width 13.6 % (11.5-14.5); Segmented Neutrophils % 74.6 %
[2016-08-09 06:44] LABS: BUN/Creatinine Ratio 36 (6-26); Blood Urea Nitrogen 42 mg/dL (8-26); Calcium 8.2 mg/dL (8.6-10.8); Carbon Dioxide 21 mEq/L (19-29); Chloride 105 mEq/L (98-109); Glucose 94 mg/dL (70-99); Osmolality,Calculated 292 (280-300); Potassium 4.1 mEq/L (3.5-4.5); Sodium 136 mEq/L (136-145); eGFR For African Americans > 60 (> 60); eGFR For Non-African Americans 59 (> 60)
[2016-08-09 07:08] VITALS: BP 122/49
--- NOTE | 2016-08-09 09:09 | Discharge Summary ---
Date of Encounter: 08/09/16 Time of Encounter: 09:05 - Discharge Diagnosis (1) RSV (respiratory syncytial virus pneumonia) Priority: Primary Status: Acute (2) Community acquired pneumonia Priority: Primary Status: Acute (3) Emphysema lung Priority: Secondary Status: Acute Qualifiers: Emphysema type: unspecified Qualified Code(s): J43.9 - Emphysema, unspecified (4) Elevated troponin Priority: Secondary Status: Acute - Discharge Medications Prescriptions: GuaiFENesin ER [Mucinex] 600 mg PO BID 14 Days Levofloxacin 750 mg PO DAILY #4 tablet Home Medications: Aspirin 325 mg PO DAILY 08/07/16 [History] Isosorbide MONOnitrate (24 HR) [Imdur] 60 mg PO DAILY 08/07/16 [History] Losartan Potassium [Cozaar] 50 mg PO DAILY 08/07/16 [History] Lovastatin 40 mg PO BID 08/07/16 [History] GuaiFENesin ER [Mucinex] 600 mg PO BID 14 Days 08/09/16 [Rx] Levofloxacin 750 mg PO DAILY #4 tablet 08/09/16 [Rx] Allergies/Adverse Reactions: Allergies No Known Allergies Allergy (Verified 08/07/16 10:01) Procedures/tests Complete & Pending: Procedures Performed prior 72 hours Category Date Time Status CT chest wo con [CT] Routine Cat Scan 08/07/16 09:30 Completed ECG 12 lead ECG [ECG] Routine Y 08/07/16 04:54 Ordered ECG 12 lead ECG [ECG] Routine Y 08/08/16 07:00 Ordered EV echocardiogram Routine Y 08/07/16 04:54 Completed Date of admission: 08/07/16 01:47 Primary care physician: Chan Yeung MD Consults: 08/07/16 04:54 Consult to Nurse Navigator [CONS] Routine Comment: Consult to Nurse Navigator [CONS] Routine Comment: 08/07/16 04:58 Consult to Occupational Therapy [CONS] Routine Comment: Evaluate, develop and implement POC Consult to Physical Therapy [CONS] Routine Comment: Evaluate, develop and implement POC Discharging clinician: Elda Bryant Anticipated date of discharge: 08/09/16 - Patient Status Disposition: Home, Self-Care Condition: Fair Functional capacity at discharge: independent ambulation Overall status at discharge: patient is back to baseline - Discharge Instructions Instructions: Upper Respiratory Infection (DC), Chronic Hypertension (DC) Follow Up With: Chan Yeung MD [Primary Care Provider] - 08/18/16 1:00 pm (Please follow up as schedule..) - Diet and Activity Activity: resume usual activities as tolerated Diet: advance to your usual diet Interval History: Patient is a 85-year-old man with medical history for CAD/PWHVt0z/PTCAstentx4/ AMI, 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 CT chest shows right upper and lower lobe groundglass opacities concerning for pneumonia and also has emphysema. Echo shows normal LVEF with wall motion abnormalities which is not new. He was started on IV antibiotics for community-acquired pneumonia, influenza is negative,. There is mild elevation of the troponin which is adynamic on repeat testing, non conerning for ACS. This is probably demand ischemia in the setting of pneumonia, no further testing. he tested positive for RSV. HE imporved clinically with iV antibiotics and supportive tx. he is being dc today in stable condition Hospital course: Mr. Jimenez is a 85 year old male Time spent discussing smoking cessation with patient: more than 10 minutes - Time Spent with Patient Total time spent providing and/or coordinating discharge services: Greater than 30 minutes - Constitutional Vitals: Temp Pulse Resp BP Pulse Ox 97.9 F 83 16 122/49 91 08/09/16 07:07 08/09/16 07:07 08/09/16 07:07 08/09/16 07:07 08/09/16 07:07 General appearance: Present: A&O X 3, no acute distress, answers questions appropriately Exam: - Head Head exam: Present: atraumatic, normocephalic - Eye Eye exam: Present: EOMI, PERRL, conjuntiva pink, sclera anicteric Pupils: Present: normal accommodation, PERRL - ENT ENT exam: Present: mucous membranes moist, normal oropharynx - Neck Neck exam general surgery: Present: full ROM, supple, trachea midline. Absent: lymphadenopathy - Respiratory Respiratory exam: Present: b/l clear Absent: accessory muscle use, rales, rhonchi - Cardiovascular Cardiovascular exam: Present: distant heart sounds, RRR, +S1, +S2. Absent: diastolic murmur, gallop, rubs, systolic murmur - GI/Abdominal GI/Abdominal exam: Present: normal bowel sounds, soft, no peritoneal signs. Absent: distended, tenderness - Extremities Exam Extremities exam: Present: warm, radial pulses palpable and symetrical. Absent : calf tenderness, cyanotic, pedal edema - Neurological Exam Neurological exam: Present: alert, CN II-XII intact, oriented X3, no focal deficits. Absent: pronater drift, facial droop, speech deficit - Psychiatric Psychiatric exam: Present: normal affect, normal mood - Skin Skin exam: Present: dry, intact, warm
[2016-08-09] MEDS: Aspirin 81 MG TAB.CHEW PO SCH (09:26)
[2016-08-09] MEDS: Isosorbide MONOnitrate (24 HR) 60 MG TAB.ER.24H PO SCH (09:26)
--- NOTE | 2016-08-10 10:02 | Electrocardiograph Report ---
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
== END 2016-08-09 10:50 | disposition home or self-care (01) ==
LOC: 2ANU 19:50 → EMEROO 19:50 → 2ANU 08-07 03:05
PROVIDERS: ADMIT Internal Medicine Endocrinology, Diabetes & Metabolism; ATTEND Internal Medicine Endocrinology, Diabetes & Metabolism

== ENCOUNTER 2017-12-04 15:53 | Inpatient (IN) ==
[2017-12-04] MEDS ORDERED: Nitroglycerin 0.4 MG TAB.SUBL SL ONE (15:58)
--- NOTE | 2017-12-04 15:59 | Emergency Department Note ---
Disposition Clinical Impression: Unstable angina pectoris Disposition: Admitted As Inpatient Condition: Fair General Adult HPI - General Stated complaint: Chest Pain Time Seen by Provider: 12/04/17 15:56 Nursing Notes Reviewed: Yes Vital Signs Reviewed: Yes - History of Present Illness HPI Narrative: 87-year-old male presents emergency department with concern for chest pain. Patient states that he had chest pain today which was similar to when he had a previous heart attack before having coronary artery bypass graft. Patient reports that it is not radiating anywhere as it did before however. Patient was given aspirin by EMS. He was also given 2 nitroglycerin en route. Patient still reporting chest pain at arrival. Reporting it to be a 6 out of 10. No fever, no nausea, no vomiting. Patient was reporting diaphoresis. - Related Data Home Medications Medication Instructions Recorded Confirmed Aspirin 325 mg PO DAILY 08/07/16 12/04/17 Isosorbide MONOnitrate (24 HR) 60 mg PO DAILY 08/07/16 12/04/17 [Imdur] Losartan Potassium [Cozaar] 50 mg PO DAILY 08/07/16 12/04/17 Lovastatin 40 mg PO BID 08/07/16 12/04/17 Allergies Allergy/AdvReac Type Severity Reaction Status Date / Time No Known Allergies Allergy Verified 12/04/17 17:30 All systems ED: reviewed and negative except as stated. Review of Systems: As Per HPI Constitutional: Denies: fever Cardiovascular: Reports: chest pain. Denies: palpitations Respiratory: Denies: cough, dyspnea Gastrointestinal: Denies: abdominal pain, nausea, vomiting Genitourinary: Denies: urgency, dysuria, frequency Musculoskeletal: Denies: back pain Integumentary: Denies: rash Neurological: Denies: headache, weakness, numbness, paresthesias Past Medical History - Past Medical History Medical history: Reports: coronary artery disease, hypertension Surgical history: Reports: angioplasty/stent, cholecystectomy, coronary bypass ( CABG), herniorrhaphy (Right inguinal x2. ) Psychiatric history: Reports: no psych history - Social History Smoking Status: Never smoker Smokeless Tobacco Status: No Alcohol use: Reports: none Drug use: Reports: none Physical Exam - General Limitations: no limitations - Head Head exam: normocephalic - Eye Eye exam: Present: EOMI - ENT ENT exam: normal oropharynx - Neck Neck exam: Present: trachea midline - Chest Chest inspection: Present: normal inspection, symmetric chest wall rise - Respiratory Respiratory exam: Present: normal lung sounds bilaterally. Absent: respiratory distress - Cardiovascular Cardiovascular exam: Present: regular rate, normal rhythm, normal heart sounds - Abdominal Exam Abdominal exam: Present: soft, Non-Tender. Absent: distention, guarding, rebound, rigidity - Extremities Exam Extremities exam: Present: normal capillary refill - Neurological Exam Neurological exam: Present: alert, oriented X3 - Psychiatric Psychiatric exam: Present: normal affect, normal mood - Skin Skin exam: Present: warm, dry, intact, normal color Course Vital Signs Temperature 97.6 F 12/04/17 15:57 Pulse Rate 80 12/04/17 15:57 Respiratory Rate 18 12/04/17 15:57 Blood Pressure 149/110 12/04/17 15:57 O2 Sat by Pulse Oximetry 97 12/04/17 15:57 Temperature 97.6 F 12/04/17 15:57 Pulse Rate 77 12/04/17 18:14 Respiratory Rate 16 12/04/17 18:14 Blood Pressure 125/86 12/04/17 18:14 O2 Sat by Pulse Oximetry 96 12/04/17 18:14 Oxygen Delivery Oxygen Delivery Room Air Medical Decision Making - MDM Narrative Medical decision making narrative: 79-year-old male presents emergency department with concern for chest pain. He was given aspirin and 2 nitroglycerin on EMS before arrival. Patient was reporting 6 out of 10 chest pain. He was given nitroglycerin, which relieved his symptoms. EKG revealed new ST depressions of 1 mm in the anterior and septal leads. This is new from previous EKG. Patient had a negative troponin. Chest x-ray interpretation by radiology did not reveal any acute cardiopulmonary process. Throughout his stay, patient started reporting increasing chest pain. We will obtain a repeat EKG, and it did not reveal any changes from the previous one. At that point, we initiated nitroglycerin drip and also gave patient fentanyl. I spoke with cardiology regarding the patient as there is concern for unstable angina. Dr. Gastelum recommended that we start low -dose heparin via ACS protocol. I spoke with the patient, who has never had a history of GI bleeds, is not complaining of any hemoptysis, hematuria, hematemesis, melena or hematochezia. Hemoglobin was within normal limits. Platelets were normal as well. INR was 1.1. Patient agreed for admission for further management of his chest pain. Spoke with the hospitalist, who agreed to accept the patient. Patient not having active chest pain at time of admission with nitroglycerin drip. Patient's vital signs were within normal limits at that time. He was not hypotensive. Chest X-Ray 12/04/17 15:59 IMPRESSION: No acute abnormality detected. D/ / Nile John MD / Nile John MD Interpreting Provider: Nile John MD Vital Signs Temperature 97.6 F 12/04/17 15:57 Pulse Rate 80 12/04/17 15:57 Respiratory Rate 18 12/04/17 15:57 Blood Pressure 149/110 12/04/17 15:57 O2 Sat by Pulse Oximetry 97 12/04/17 15:57 Temperature 97.6 F 12/04/17 15:57 Pulse Rate 77 12/04/17 18:14 Respiratory Rate 16 12/04/17 18:14 Blood Pressure 125/86 12/04/17 18:14 O2 Sat by Pulse Oximetry 96 12/04/17 18:14 Oxygen Delivery Oxygen Delivery Room Air - Lab Data Result diagrams: 12/04/17 16:06 12/04/17 16:06 Lab Results 12/04/17 12/04/17 12/04/17 Range/Units 16:06 16:06 16:06 WBC 7.7 (4.3-11.1) K/mcL RBC 4.47 (4.19-5.50) M/mcL Hgb 14.7 (12.9-16.9) g/dL Hct 43.5 (37.5-50.1) % MCV 97.3 (83.0-100.0) fL MCH 32.9 (28.0-33.3) pg MCHC 33.8 (31.6-35.5) g/dL RDW 13.5 (11.5-14.5) % Plt Count 158 (140-400) K/mcL MPV 10.2 (9.4-12.4) fL Immature Gran % 0.4 (0-4) % Seg Neutrophils % 56.8 % Lymphocytes % 30.0 % Monocytes % 9.3 % Eosinophils % 3.0 % Basophils % 0.5 % Neutrophils # 4.4 (1.6-8.9) K/mcL Lymphocytes # 2.3 (0.6-4.6) K/mcL Monocytes # 0.7 (0.0-1.3) K/mcL Eosinophils # 0.2 (0.0-0.6) K/mcL Basophils # 0.0 (0.0-0.2) K/mcL PT 12.8 H (9.4-12.1) Seconds INR 1.1 APTT 26.5 (26.0-36.0) Seconds Sodium (136-145) mEq/L Potassium (3.5-5.1) mEq/L Chloride (98-107) mEq/L Carbon Dioxide (23-29) mEq/L BUN (8-23) mg/dL Creatinine (0.70-1.30) mg/dL Est GFR ( Amer) (> 60) Est GFR (Non-Af Amer) (> 60) BUN/Creatinine Ratio (6-26) Glucose (70-105) mg/dL Calculated Osmolality (280-300) Calcium (8.6-10.3) mg/dL Troponin I (< 0.04) ng/mL B-Natriuretic Peptide 140 H (Less than 100) pg/mL 12/04/17 Range/Units 16:06 WBC (4.3-11.1) K/mcL RBC (4.19-5.50) M/mcL Hgb (12.9-16.9) g/dL Hct (37.5-50.1) % MCV (83.0-100.0) fL MCH (28.0-33.3) pg MCHC (31.6-35.5) g/dL RDW (11.5-14.5) % Plt Count (140-400) K/mcL MPV (9.4-12.4) fL Immature Gran % (0-4) % Seg Neutrophils % % Lymphocytes % % Monocytes % % Eosinophils % % Basophils % % Neutrophils # (1.6-8.9) K/mcL Lymphocytes # (0.6-4.6) K/mcL Monocytes # (0.0-1.3) K/mcL Eosinophils # (0.0-0.6) K/mcL Basophils # (0.0-0.2) K/mcL PT (9.4-12.1) Seconds INR APTT (26.0-36.0) Seconds Sodium 138 (136-145) mEq/L Potassium 4.6 (3.5-5.1) mEq/L Chloride 104 (98-107) mEq/L Carbon Dioxide 25 (23-29) mEq/L BUN 21 (8-23) mg/dL Creatinine 1.27 (0.70-1.30) mg/dL Est GFR ( Amer) > 60 (> 60) Est GFR (Non-Af Amer) 54 L (> 60) BUN/Creatinine Ratio 17 (6-26) Glucose 119 H (70-105) mg/dL Calculated Osmolality 290 (280-300) Calcium 8.8 (8.6-10.3) mg/dL Troponin I < 0.03 (< 0.04) ng/mL B-Natriuretic Peptide (Less than 100) pg/mL - EKG Data EKG #1 EKG attestation: Yes I reviewed and interpreted this EKG. EKG results narrative: 16:01 EKG #1 Ventricular rate 81 bpm, QRS duration 110 ms, QT 398 ms, QTC 435 ms, left axis deviation. Sinus rhythm with first-degree AV block. There are occasional PVCs. ST segment depressions of 1 mm noted in the anterior and septal leads. This is compared to previous study obtained on August 08, 2016. 17:13 EKG #2 Ventricular rate 77 beats for minute, QRS duration 114 ms, QT 394 ms, QTC 426 ms , left axis deviation. No changes on this EKG
--- NOTE | 2017-12-04 16:21 | Emergency Department Note ---
Disposition Clinical Impression: ACS (acute coronary syndrome) Disposition: Still a Patient General Adult HPI - General Chief complaint: ED Chest Pain Stated complaint: Chest Pain Time Seen by Provider: 12/04/17 15:56 - History of Present Illness Pain Scale: 5 - Related Data Home Medications Medication Instructions Recorded Confirmed Aspirin 325 mg PO DAILY 08/07/16 08/07/16 Isosorbide MONOnitrate (24 HR) 60 mg PO DAILY 08/07/16 08/07/16 [Imdur] Losartan Potassium [Cozaar] 50 mg PO DAILY 08/07/16 08/07/16 Lovastatin 40 mg PO BID 08/07/16 08/07/16 Previous Rx's Medication Instructions Recorded GuaiFENesin ER [Mucinex] 600 mg PO BID 14 Days tbbp.12hr 08/09/16 levoFLOXacin [Levaquin] 750 mg PO DAILY #4 tablet 08/09/16 Allergies Allergy/AdvReac Type Severity Reaction Status Date / Time No Known Allergies Allergy Verified 12/04/17 16:04 Past Medical History - Past Medical History Medical history: Reports: coronary artery disease, hypertension Surgical history: Reports: angioplasty/stent, cholecystectomy, coronary bypass ( CABG), herniorrhaphy (Right inguinal x2. ) Psychiatric history: Reports: no psych history - Social History Smoking Status: Never smoker Smokeless Tobacco Status: No Alcohol use: Reports: none Drug use: Reports: none Physical Exam - General General appearance: alert, in no apparent distress Course - Reevaluation(s) Reevaluation #1: ATTESTATION NOTE I examined this patient and my medical decision-making was reviewed with the Resident Physician, Javon Lu. I agree with the documented findings, disposition and treatment plan as described except to the extent set forth below. I have personally performed a face to face evaluation on this patient. I have reviewed and agree with the care plan. Briefly: 87-year-old male by EMS for chest pain. History of CABG. Heart scores 5. EKG shows possibly new ST depressions in the lateral leads. In the precordial leads. Patient got aspirin and nitroglycerin by EMS will get another dose of nitroglycerin here will get screening labs including troponin and chest x-ray with admission anticipated. Providing 40 minutes of critical care service for this patient. Admission disposition pending. Time: 16:19 Vital Signs Temperature 97.6 F 12/04/17 15:57 Pulse Rate 80 12/04/17 15:57 Respiratory Rate 18 12/04/17 15:57 Blood Pressure 149/110 12/04/17 15:57 O2 Sat by Pulse Oximetry 97 12/04/17 15:57 Temperature 97.6 F 12/04/17 15:57 Pulse Rate 80 12/04/17 15:57 Respiratory Rate 18 12/04/17 15:57 Blood Pressure 149/110 12/04/17 15:57 O2 Sat by Pulse Oximetry 97 12/04/17 15:57 Oxygen Delivery Oxygen Delivery Room Air
[2017-12-04 16:27] LABS: Basophils % 0.5 %; Eosinophils # 0.2 K/mcL (0.0-0.6); Hematocrit 43.5 % (37.5-50.1); Hemoglobin 14.7 g/dL (12.9-16.9); Immature Granulocytes % 0.4 % (0-4); Lymphocytes # 2.3 K/mcL (0.6-4.6); Mean Corpuscular HGB Conc 33.8 g/dL (31.6-35.5); Mean Corpuscular Hemoglobin 32.9 pg (28.0-33.3); Mean Corpuscular Volume 97.3 fL (83.0-100.0); Mean Platelet Volume 10.2 fL (9.4-12.4); Monocytes # 0.7 K/mcL (0.0-1.3); Monocytes % 9.3 %; Neutrophils # 4.4 K/mcL (1.6-8.9); Platelet Count 158 K/mcL (140-400); Red Blood Count 4.47 M/mcL (4.19-5.50); Red Cell Distribution Width 13.5 % (11.5-14.5); Segmented Neutrophils % 56.8 %
[2017-12-04 16:39] LABS: INR 1.1; Prothrombin Time 12.8 Seconds (9.4-12.1)
[2017-12-04 16:40] LABS: BUN/Creatinine Ratio 17 (6-26); Blood Urea Nitrogen 21 mg/dL (8-23); Calcium 8.8 mg/dL (8.6-10.3); Carbon Dioxide 25 mEq/L (23-29); Chloride 104 mEq/L (98-107); Glucose 119 mg/dL (70-105); Osmolality,Calculated 290 (280-300); Potassium 4.6 mEq/L (3.5-5.1); Sodium 138 mEq/L (136-145); Troponin I < 0.03 ng/mL (< 0.04); eGFR For Non-African Americans 54 (> 60)
[2017-12-04 16:42] LABS: Activated Partial Thrombo Time 26.5 Seconds (26.0-36.0)
[2017-12-04] MEDS ORDERED: *HR* FentaNYL (PF) 100 MCG/2 ML VIAL IVP ONE (17:00)
[2017-12-04] MEDS ORDERED: Nitroglycerin 25 MG/250 ML INFUS..BTL IVC SCH (17:15)
[2017-12-04] MEDS ORDERED: *HR* Heparin 5,000 UNIT/ML VIAL IVP ONE (17:21)
[2017-12-04] MEDS ORDERED: *HR* Heparin 5,000 UNIT/ML VIAL IVP PRN ×2 (17:21)
[2017-12-04] MEDS ORDERED: Heparin 25,000 UNIT/500 ML D5W 25,000 UNIT/500 ML BAG IVC SCH (17:30)
[2017-12-04] MEDS ORDERED: Naloxone 0.4 MG/ML INJ IVP PRN (18:56)
--- NOTE | 2017-12-04 19:31 | Internal Med History&Physical ---
<JohnNica Con - Last Filed: 12/04/17 22:33> Date of Encounter: 12/04/17 Time of Encounter: 19:11 Internal Medicine - H&P: HPI Chief complaint: Chest pain Admitted From: Home Plans for Post Hospital Care: Home History of present illness: Mr. Jimenez is a 87 year old male with history of Cabg x 20 years ago. Patient has history of MN 33 years ago and a second MN in 2002, he has 3 stents. Currently in atrial fibrillation rate is controlled at 77 bpm's. The patient indicated that he was having CP and diaphoresis that started at 1500 today. The pain became unbearable and he took nitro at home, 2 nitro in the squad and another 2 doses in the ED. The patient was eventually started on a nitroglycerin and heparin drip. Due to continued dull chest pain. Ekg showed ST depression in the anterior and septal leads. Cardiology consultation in the ED. Patient having unstable angina. Patient was started on heparin drip. Patient indicated he has not had any cardiac workup since last June,. Will get echo in am. Trop less than 0.03. Past Med Surg Social Fam HX - Past Medical History Medical history: coronary artery disease, hypertension Psychiatric history: no psych history - Past Surgical History Surgical History: angioplasty/stent, cholecystectomy, coronary bypass (CABG), herniorrhaphy (Right inguinal x2. ) Additional surgical history: b/l inguinal hernia repairs - Social History Smoking Status: Never smoker Smokeless Tobacco Status: No Alcohol use: none Drug use: none - Family History Father Hx Family Cardiac Disorders: Yes (heart disease) Internal Medicine - H&P: Meds Aspirin 325 mg PO DAILY 08/07/16 [History] Isosorbide MONOnitrate (24 HR) [Imdur] 60 mg PO DAILY 08/07/16 [History] Losartan Potassium [Cozaar] 50 mg PO DAILY 08/07/16 [History] Lovastatin 40 mg PO BID 08/07/16 [History] 3 Allergy/AdvReac Type Severity Reaction Status Date / Time No Known Allergies Allergy Verified 12/04/17 17:30 All Systems PM: A 10-system review of systems was performed and is negative for pertinent findings except as documented above in the HPI. - Constitutional Constitutional: no chills, no fever(s), no night sweats - EENT Eyes: no change in vision, no discharge, no pain, no photophobia Ears: no ear discharge, no ear pain, no tinnitus Nose, mouth and throat: no dysphagia, no nasal discharge, no neck pain, no sore throat - Cardiovascular Cardiovascular ROS IM: chest pain, diaphoresis, no dyspnea, no lightheadedness, no palpitations, no syncope - Respiratory Respiratory: no cough, no dyspnea, no wheezing, no excessive phlegm production - Gastrointestinal Gastrointestinal: no abdominal pain, no diarrhea, no hematemesis, no hematochezia, no melena, no nausea, no vomiting - Musculoskeletal Musculoskeletal ROS IM: no numbness, no tingling - Integumentary Integumentary IM: no rash, no unusual bruising - Neurological Neurological ROS: no confusion, no convulsions, no focal weakness, no numbness, no tingling, no tremor(s) - Hematologic/Lymphatic Hematologic/Lymphatic: no easy bruising - Constitutional Vitals: Temp Pulse Resp BP Pulse Ox 97.6 F 77 16 125/86 96 12/04/17 15:57 12/04/17 18:14 12/04/17 18:14 12/04/17 18:14 12/04/17 18:14 General appearance: Present: A&O X 3, answers questions appropriately - Head Head exam: Present: atraumatic, normocephalic - Eye Eye exam: Present: PERRL, conjuntiva pink, sclera anicteric Pupils: Present: PERRL - Neck Neck exam general surgery: Present: supple, trachea midline. Absent: lymphadenopathy - Respiratory Respiratory exam: Present: CTAB. Absent: accessory muscle use, rales, rhonchi, wheezes - Cardiovascular Cardiovascular exam: Present: RRR, +S1, +S2. Absent: diastolic murmur, gallop, rubs, systolic murmur - GI/Abdominal GI/Abdominal exam: Present: normal bowel sounds, soft, no peritoneal signs. Absent: distended, tenderness - Extremities Exam Extremities exam: Present: warm, radial pulses palpable and symmetrical. Absent : calf tenderness, cyanotic, pedal edema - Neurological Exam Neurological exam: Present: CN II-XII intact, oriented X3, no focal deficits. Absent: pronater drift, facial droop, speech deficit - Skin Skin exam: Present: dry, intact Internal Med - H&P Results - Labs CBC & Chem 7: 12/04/17 16:06 12/04/17 16:06 - Assessment and plan (1) Acute coronary syndrome Current Visit: Yes Status: Acute Assessment and plan: Extensive cardiac history with 2 MN's, Cabg and 3 stents Patient with new ST changes-Cardiology was consulted bythe ED. Serial cardiac troponins Cardiac monitoring Echo in am Monitor daily labs (2) Unstable angina pectoris Current Visit: Yes Status: Acute Assessment and plan: Nitroglycerin drip Cardiac monitoring Cardiology consulted (3) Hypertension Current Visit: Yes Status: Acute Assessment and plan: Bp is uncontrolled, likely due to angina. Continue home medications Patient on nitro drip Qualifiers: Hypertension type: essential hypertension Qualified Code(s): I10 - Essential (primary) hypertension - Time Spent With Patient Total time spent is greater than 50% in coordination of care (as documented) at patient's floor/unit and/or counseling patient: 25 - 35 minutes <Quique Galicia - Last Filed: 12/05/17 00:22> Date of Encounter: 12/05/17 Internal Medicine - H&P: HPI History of present illness: Mr. Jimenez is a 87 year old male All Systems PM: A 10-system review of systems was performed and is negative for pertinent findings except as documented above in the HPI. - Constitutional Vitals: Temp Pulse Resp BP Pulse Ox 97.6 F 77 18 146/73 98 12/04/17 19:09 12/04/17 21:00 12/04/17 19:09 12/04/17 21:00 12/04/17 19:09 Internal Med - H&P Results - Labs CBC & Chem 7: 12/04/17 16:06 12/04/17 16:06 Labs: Cardiac Enzymes 12/04/17 Range/Units 22:17 Troponin I 13.88 H* (< 0.04) ng/mL - Attending Attestation I have seen patient and performed my own history and physical examination. I have discussed case with admitting APPLICATION SPECIALIST, and I agree with her assessment and plan of care as documented in her H&P. Briefly, patient admitted for chest pain. He has history of CAD with 4 stents 20 years ago. He states that chest pain is now resolved. He is on nitro and heparin drips. Cardiology has been consulted. We will trend troponins and monitor closely on telemetry. - Time Spent With Patient Total time spent is greater than 50% in coordination of care (as documented) at patient's floor/unit and/or counseling patient:
[2017-12-05 06:16] LABS: Basophils # 0.1 K/mcL (0.0-0.2); Basophils % 0.7 %; Eosinophils # 0.2 K/mcL (0.0-0.6); Eosinophils % 2.8 %; Hematocrit 44.3 % (37.5-50.1); Hemoglobin 15.2 g/dL (12.9-16.9); Immature Granulocytes % 0.3 % (0-4); Lymphocytes # 2.5 K/mcL (0.6-4.6); Lymphocytes % 36.1 %; Mean Corpuscular HGB Conc 34.3 g/dL (31.6-35.5); Mean Corpuscular Hemoglobin 33.6 pg (28.0-33.3); Mean Corpuscular Volume 97.8 fL (83.0-100.0); Mean Platelet Volume 10.2 fL (9.4-12.4); Monocytes # 0.7 K/mcL (0.0-1.3); Neutrophils # 3.4 K/mcL (1.6-8.9); Platelet Count 154 K/mcL (140-400); Red Blood Count 4.53 M/mcL (4.19-5.50); Red Cell Distribution Width 13.6 % (11.5-14.5); Segmented Neutrophils % 50.1 %
[2017-12-05 07:13] LABS: BUN/Creatinine Ratio 19 (6-26); Blood Urea Nitrogen 21 mg/dL (8-23); Calcium 8.9 mg/dL (8.6-10.3); Carbon Dioxide 25 mEq/L (23-29); Chloride 106 mEq/L (98-107); Glucose 97 mg/dL (70-105); Osmolality,Calculated 295 (280-300); Potassium 4.3 mEq/L (3.5-5.1); Sodium 141 mEq/L (136-145); eGFR For Non-African Americans > 60 (> 60)
[2017-12-05 07:19] LABS: Troponin I 23.12 ng/mL (< 0.04)
[2017-12-05] MEDS: Isosorbide MONOnitrate (24 HR) 60 MG TAB.ER.24H PO SCH (08:10)
[2017-12-05] MEDS: Aspirin 325 MG TABLET PO SCH (08:10)
--- NOTE | 2017-12-05 09:16 | Cardiology Consult Note ---
<Leisa Aguilera Marek - Last Filed: 12/05/17 09:34> Date of Encounter: 12/05/17 Time of Encounter: 07:40 Assessment and Plan (1) NSTEMI (non-ST elevated myocardial infarction) Current Visit: Yes Status: Acute Typical chest pain symptoms. Troponin negative, 13.88, 23.12. Ischemic ECG changes present. No recent ischemic evaluation, reports last LHC in 2005, 4 stents at that time. Continue heparin and NTG gtt. Continue asa, statin. Has declined BB in the past per notes, is willing to try, will start low dose BB. Check TTE. Recommend LHC with possible PCI; patient wants to first discuss with and family. Further recommendations to follow. (2) Hx of CABG Current Visit: Yes Status: Acute Hx of 3vCABG in 2002. Reports 4 stents in 2005. Has not been on BB in the outpatient setting, reportedly declines. Asa, statin. Discussion w patient/family: The assessment and plan as outlined above was discussed with the patient and/or family members who expressed understanding and agreement. All questions were answered. Thank you for involving us in the care of your patient. Please call with any questions. The patient will be discussed and reviewed with Dr. Gastelum; changes to be made accordingly. History of Present Illness Consult date: 12/05/17 Requesting physician: Javon Lu Consult reason: NSTEMI Chief complaint: Chest pain History of present illness: Mr. Jimenez is a 87 year old male with PMHx significant for 3vCABG in 2002, s/p PCI in 2005, HTN, HLD who presented to the ED yesterday afternoon after he developed chest discomfort while using the gallagher hog in his han yesterday. He states he was assisting his son-in-law change out machinery on the tractor when he felt chest tightness and pressure that went up to his jaw. He reports symptoms lasted 30 minutes and EMS was called and took patient to [facility] ED for further evaluation. Initial troponin was negative, then 13.88--23.12. Ischemic ECG changes are present on the ECG. He denies any recent CV testing. Past Med Surg Social Fam HX - Past Medical History Attestation: Yes The following information was validated with the patient. Source: patient Medical history: coronary artery disease, hyperlipidemia, hypertension Psychiatric history: no psych history - Past Surgical History Surgical History: angioplasty/stent, cholecystectomy, coronary bypass (CABG), herniorrhaphy (Right inguinal x2. ) Additional surgical history: b/l inguinal hernia repairs - Social History Smoking Status: Never smoker Smokeless Tobacco Status: No Alcohol use: none Drug use: none - Family History Father Hx Family Cardiac Disorders: Yes (heart disease) Medications and Allergies Aspirin 325 mg PO DAILY 08/07/16 [History] Isosorbide MONOnitrate (24 HR) [Imdur] 60 mg PO DAILY 08/07/16 [History] Losartan Potassium [Cozaar] 50 mg PO DAILY 08/07/16 [History] Lovastatin 40 mg PO BID 08/07/16 [History] 3 Allergy/AdvReac Type Severity Reaction Status Date / Time No Known Allergies Allergy Verified 12/04/17 17:30 All Systems Review: The remainder of the systems were reviewed and are negative - Cardiovascular Cardiovascular: as per HPI Physical Examination Vital Signs, Last 4 Hours Temp Pulse Resp BP Pulse Ox 12/05/17 07:12 97.6 F 61 18 158/86 98 General: Conversant, No Apparent Distress HEENT: Atraumatic, Normocephaly, Mucus Membranes Moist Neck: No JVD, Normal carotid pulses Cardiac: Other (irregularly irregular) Lungs: Normal Breath Sounds, No Wheeze, Rales, Rhonchi Neuro: Alert and responsive, No focal deficits noted Abdomen: Soft, Non-Tender Skin: No rashes noted on visualized skin Musculoskeletal: No Chest Wall Tenderness Extremities: No Clubbing, No Cyanosis, No Edema, Normal Pulses Results 12/05/17 05:40 12/05/17 05:40 Lab Results 12/04/17 12/05/17 12/05/17 22:17 05:40 05:40 WBC 6.8 Hgb 15.2 Hct 44.3 Plt Count 154 Sodium 141 Potassium 4.3 Chloride 106 Carbon Dioxide 25 BUN 21 Creatinine 1.13 Glucose 97 Calcium 8.9 Troponin I 13.88 H* 23.12 H* Active Medications Aspirin (Aspirin) 325 mg PO DAILY CHRIST Stop: 06/06/18 09:01 Last Admin: 12/05/17 08:10 Dose: 325 mg Atorvastatin Calcium (Lipitor) 20 mg PO HS CHRIST Stop: 06/05/18 21:01 Last Admin: 12/04/17 21:07 Dose: 20 mg Heparin Sodium (Porcine) (Heparin) 4,000 unit IVP Q6HR PRN PRN Reason: SEE COMMENTS Stop: 06/05/18 17:22 Heparin Sodium (Porcine) (Heparin) 2,000 unit IVP Q6H PRN PRN Reason: SEE COMMENTS Stop: 06/05/18 17:22 Nitroglycerin (Nitroglycerin Premix 25 Mg/250 Ml) 25 mg in 250 mls @ 3 mls/hr IVC .Q24H CHRIST; 5 MCG/MIN PRN Reason: Protocol Stop: 06/05/18 17:16 Last Titration: 12/05/17 00:10 Dose: 0 mcg/min, 0 mls/hr Heparin Sodium/Dextrose (Heparin 25,000 Unit/500 Ml D5w) 25,000 unit in 500 mls @ 20 mls/hr IVC .Q24H CHRIST; 11.423 UNIT/KG/HR PRN Reason: Protocol Stop: 06/05/18 17:31 Last Titration: 12/05/17 01:17 Dose: 11.42 unit/kg/hr, 20 mls/hr Isosorbide Mononitrate (Imdur) 60 mg PO DAILY CHRIST Stop: 06/06/18 09:01 Last Admin: 12/05/17 08:10 Dose: 60 mg Losartan Potassium (Cozaar) 50 mg PO DAILY CHRIST Stop: 06/06/18 09:01 Last Admin: 12/05/17 08:10 Dose: 50 mg Naloxone HCl (Narcan) 0.4 mg IVP Q2MIN PRN PRN Reason: SEE COMMENTS Stop: 06/05/18 18:57 - EKG Interpretation EKG results cardiology: personally reviewed Consult Discharge Plan - Plan Referrals: Chan Yeung MD [Primary Care Provider] - <Melissa Gastelum - Last Filed: 12/05/17 09:55> Date of Encounter: 12/05/17 - Attending Attestation I examined this patient and my medical decision-making was reviewed with the PROFESSOR OF ENVIRONMENTAL STUDIES. I agree with the documented findings, disposition and treatment plan as described. Mr. Jimenez is a very pleasant, active 87 year old male with a history of CAD presenting with NSTEMI. Troponin now elevated at 23. Anterior ST depressions noted on ECG. Discussed options with patient including R/B/A of LHC. Given his good functional status, we have recommended pursuing a LHC. He expressed understanding of the recommendations as well as risks vs benefits and alternatives of LHC. He would like to discuss with his before making a decision. For now, continue heparin, statin, asa. Has declined BB in the past. Now mildly bradycardic with first degree AVB - will hold off on BB. Check Echo. Assessment and Plan Discussion w patient/family: The assessment and plan as outlined above was discussed with the patient and/or family members who expressed understanding and agreement. All questions were answered. Thank you for involving us in the care of your patient. Please call with any questions. History of Present Illness History of present illness: Mr. Jimenez is a 87 year old male All Systems Review: The remainder of the systems were reviewed and are negative Physical Examination Vital Signs, Last 4 Hours Temp Pulse Resp BP Pulse Ox 12/05/17 07:12 97.6 F 61 18 158/86 98 Results 12/05/17 05:40 12/05/17 05:40 Lab Results 12/04/17 12/05/17 12/05/17 22:17 05:40 05:40 WBC 6.8 Hgb 15.2 Hct 44.3 Plt Count 154 Sodium 141 Potassium 4.3 Chloride 106 Carbon Dioxide 25 BUN 21 Creatinine 1.13 Glucose 97 Calcium 8.9 Troponin I 13.88 H* 23.12 H*
[2017-12-05] MEDS ORDERED: 0.9 % Sodium Chloride 1,000 ML ONE ×3 (12:43→16:37)
[2017-12-05] MEDS ORDERED: ISOVUE-370 200 ML INFUS..BTL IV ONE (12:43)
[2017-12-05] MEDS ORDERED: *HR* Heparin 10,000 UNIT/10 ML VIAL ONE (12:43)
[2017-12-05] MEDS ORDERED: Nitroglycerin 1,000 MCG/10 ML VIAL IV ONE (12:43)
[2017-12-05] MEDS ORDERED: Heparin 1,000 UNITS/500 mL 500 ML ONE (12:43)
[2017-12-05] MEDS ORDERED: *HR* FentaNYL (PF) 100 MCG/2 ML VIAL ONE (13:10)
[2017-12-05] MEDS ORDERED: *HR* Midazolam HCl 2 MG/2 ML VIAL ONE (13:10)
--- NOTE | 2017-12-05 13:10 | Pre-Sedation Evaluation ---
Pre-sedation evaluation - Pre-sedation checklist Recent Vitals: Last Vital Signs Temp 97.5 F L 12/05/17 11:33 Pulse 53 12/05/17 11:33 Resp 18 12/05/17 11:33 BP 116/76 12/05/17 11:33 Pulse Ox 98 12/05/17 11:33 ASA Classification *see protocol: CLASS II-Mild systemic disease Cardiac Registry (Cardio Only) - Functional Capacity Functional Capacity: < 4 METS - Clincal Frailty Scale Clinical Frailty Scale: Mildly Frail
[2017-12-05] MEDS ORDERED: Tirofiban 12.5 MG/250ML 12.5 MG/250 ML BAG ONE (14:01)
[2017-12-05] MEDS ORDERED: *HR* Nitroprusside 50 MG VIAL IVC ONE (14:06)
[2017-12-05] MEDS ORDERED: D5% in Water 100 ML ONE (14:12)
[2017-12-05] MEDS ORDERED: *HR* Atropine Sulfate 1 MG/10 ML SYRINGE ONE ×2 (14:43→16:37)
[2017-12-05] MEDS: Tirofiban 12.5 MG/250ML 12.5 MG/250 ML BAG IVC SCH (15:00)
--- NOTE | 2017-12-05 15:17 | Invasive Diagnostic Lab Proc ---
Name: Nile Jimenez Date of Study: 12/05/2017 Date: 1930 Ht: 70.1in Medical Record#: [id number] Age: 87 Wt: 191.80lb Gender: Male BSA: 2.05 Order #: [id number] BMI: 27.46 Physicians Procedure Physician: Jocelyn Smith MD Referring MD: Referring MD: Staff Name Position Time In Rosie Yan RN Wicker Worker 12:47 PM Sites, Elisha RT (R) Monitor 12:47 PM Sites, Elisha RT (R) Scrub 12:47 PM [place] Elisha RT (R) Monitor 12:47 PM Indications Indication Non-Stemi Procedures Performed Procedure L HRT ART/GRFT ANGIO PRQ REVASC BYP GRAFT 1 VSL Pre-Procedure Checklist Informed consent is complete signed and on chart. H&P is on chart. ID band is on and ID verified with patient. Patient NPO for procedure The procedure was described for the patient and questions were answered. Blood Pressure: 116/76 ECG is on chart. Rhythm: NSR Plan of Care Patient will tolerate the procedure without complications. Adequate level of comfort will be maintained. Hemodynamics will remain stable Patient will recover from procedure without complications. Respiratory function will be maintained. Cardiac rhythm will remain stable. Patient temperature will be maintained. Patient and/or family have verbalized understanding of the procedure. Patient Education Chief Complaint/Reason for Test: Cardiac Cath Developmental Category: Geriatric (65+ years) Developmentally Appropriate for Age: Yes Learning Barriers: None Education Needs: Procedure Education Method: Verbal Information Taught: Cardiac Cath Educational Evaluation: Able to repeat information Intravenous Access Time IV Size Location DC'd Fluid/Drip Rate Units RN 01:13 PM 18g 1 05/14" Patent On Arrival Lt Antecubital 0.9NaCl 25 ml/hr Rosie Yan RN Allergies NKDA Vital Signs Time BP (mmHg) HR (bpm) O2 Sat. RR (bpm) LOC 12:46 PM 116 / 76 53 98 % 18 5 = Fully awake and oriented or at pre-proc level 01:28 PM 131 / 60 68 100 % 15 01:33 PM 118 / 66 62 98 % 20 01:37 PM 117 / 64 48 97 % 24 01:38 PM 108 / 57 44 96 % 24 01:43 PM 97 / 59 43 99 % 17 01:48 PM 110 / 67 70 95 % 22 01:53 PM 105 / 63 65 96 % 21 01:58 PM 116 / 74 80 97 % 24 02:03 PM 121 / 69 84 97 % 20 02:08 PM 127 / 78 76 99 % 21 02:13 PM 131 / 86 78 98 % 21 01:14 PM 163 / 107 79 100 % 14 01:18 PM 131 / 102 65 98 % 17 01:23 PM 142 / 79 64 100 % 13 02:18 PM 128 / 78 75 98 % 21 02:23 PM 134 / 86 76 99 % 21 02:28 PM 130 / 77 81 99 % 23 02:33 PM 107 / 66 81 100 % 20 02:39 PM 138 / 85 67 99 % 20 02:43 PM 152 / 78 68 88 % 14 02:48 PM 149 / 83 68 100 % 18 02:53 PM 144 / 81 67 99 % 18 Procedural Medications Time Medication Dose Units Method Given By 01:15 PM Oxygen 2 L/min nasal cannula Rosie Yan RN 01:15 PM Versed 0.5 mg Intravenous Rosie Yan RN 01:15 PM Fentanyl 50 mcg Intravenous Rosie Yan RN 01:23 PM Fentanyl 25 mcg Intravenous Rosie Yan RN 01:24 PM Lidocaine 2% 19 ml Subcutaneous Jocelyn Smith MD 01:41 PM Heparin 4000 units Intravenous Rosie Yan RN 01:45 PM Atropine 0.25 mg Intravenous Rosie Yan RN 02:09 PM Aggrastat Bolus: 42 ml Intravenous Rosie Yan RN 02:12 PM Aggrastat 12.5mg/250ml 7.5 ml Intravenous Rosie Yan RN 02:26 PM Nipride 25 mcg Intracoronary Meño Smith MD 02:32 PM Nipride 25 mcg Intracoronary RomanussMeño hyatt MD 02:37 PM Nipride 25 mcg Intracoronary RomanussMeño hyatt MD 03:00 PM Plavix 300 mg Orally Rosie Yan RN ASA Classification: CLASS II- Mild systemic disease (i.e. well-controlled diabetes, hypertension, asthma, cigarette smoking) Syeda Score Preprocedure Postprocedure Activity 2- Moves 4 extremities sustained head lift Activity 2- Moves 4 extremities sustained head lift Circulation 2- SBP +/= 20 points of pre-anesthetic level Circulation 2- SBP +/= 20 points of pre-anesthetic level Consciousness 2- Awake and alert oriented x 3 Consciousness 2- Awake and alert oriented x 3 O2 Saturation 2- Able to maintain O2 satruation of 92% on room air O2 Saturation 2- Able to maintain O2 satruation of 92% on room air Respiratory 2- Able to deep breathe and cough well Respiratory 2- Able to deep breathe and cough well Total Score 10 Total Score 10 Contrast Agent: Isovue Diagnostic Contrast: 137 ml Total Contrast: 137 ml Fluoro Dose: 61789 mGy Activated Clotting Time Time Seconds to Clot 01:40 PM 156 02:09 PM 271 02:51 PM 245 Procedure Log Time Note Enter By 12:47 PM Rosie Yan RN Position: Wicker Worker Time in: 12:47 [facility] 12:47 PM Elisha Naidu RT (R) Position: Scrub Time in: 12:47 [facility] 12:47 PM Elisha Martinez RT (R) Position: Monitor Time in: 12:47 [facility] 12:47 PM Patient charges- Angio tray pack, Navilyst 3mm J, Pulse Oximetry and ACIST tubing and transducer [facility] 01:12 PM CathStat 01:12 PM Vitals capture started with the following parameters, Patient=Adult, Interval=5 min, Initial Fjnklrqi=080 mmHg, Deflation Rate=5 mmHg, Cuff placed on Right Arm 01:14 PM HR=79 bpm, APIN=656/107 mmhg, RqB2=673.0 %, Resp=14 B/min 01:14 PM Recorded ECG: HR=72 Condition=Condition 1 01:14 PM Pt arrived to analytical laboratory technician 2 at 13:14 :14 PM Physician arrived 13:14 :14 PM Meet and greet completed :14 PM Sign in performed according to hospital policy. :14 PM Procedure start 13:14 :15 PM Time: 13:15 Oxygen on at 2 L/min per nasal cannula by Rosie Yan RN :15 PM Time: 13:15 Versed 0.5 mg Intravenous Given by Rosie Yan RN :15 PM Time: 13:15 Fentanyl 50 mcg Intravenous Given by Rosie Yan RN :15 PM Case Delayed no :18 PM HR=65 bpm, FZIS=977/102 mmhg, SpO2=98.0 %, Resp=17 B/min 01:22 PM ASA Class CLASS II- Mild systemic disease (i.e. well-controlled diabetes, hypertension, asthma, cigarette smoking) twilson 01:23 PM Time out performed according to hospital policy twilson 01:23 PM HR=64 bpm, KKAX=733/79 mmhg, IvB5=597.0 %, Resp=13 B/min 01:24 PM Pressure channel 1 zeroed. 01:24 PM Time: 13:23 Fentanyl 25 mcg Intravenous Given by Rosie Yan RN twilson 01:24 PM Time: 13:24 19 ml Lidocaine 2% to right groin Subcutaneous Given by Jocelyn Smith MD twilson :26 PM 4ml contrast hand injection by Dr. Smith. twilson 01:26 PM Micro-Introducer Kit utilized for sheath placement twilson 01:27 PM Access obtained by percutaneous puncture. 6Fr 10cm Terumo [place] sheath placed in right Femoral artery. [id number] twilson 01:27 PM 5Fr FR 4 catheter inserted over the wire DN twilson 01:28 PM HR=68 bpm, RHHW=433/60 mmhg, QhG6=580.0 %, Resp=15 B/min 01:31 PM Catheter removed. twilson 01:31 PM 4Fr FR 4 catheter inserted over the wire DN twilson 01:31 PM Wire advanced. twilson 01:32 PM Catheter removed, intact. twilson 01:32 PM Tortuous abdominal anatomy. twilson 01:33 PM Preparing to exchange for a long sheath. twilson 01:33 PM HR=62 bpm, VYDA=017/66 mmhg, SpO2=98.0 %, Resp=20 B/min 01:37 PM NIBP STAT measurement started. 01:37 PM Recorded Pressure: Ao, HR=61, Condition=Condition 1 (Aorta) Ao 81/45/62 01:37 PM HR=48 bpm, MVJV=839/64 mmhg, SpO2=97.0 %, Resp=24 B/min 01:37 PM Sheath exchanged for a 6 Fr 55 cm Flexor Check-Nehemias Introducer sheath [id number] twilson 01:38 PM Recorded Pressure: Ao, HR=45, Condition=Condition 1 (Aorta) Ao 62/41/51 01:38 PM ACT drawn. twilson 01:38 PM HR=44 bpm, PHXT=702/57 mmhg, SpO2=96.0 %, Resp=24 B/min 01:39 PM 5Fr FR 4 catheter inserted over the wire DN twilson 01:39 PM RCA angiography performed in multiple views. twilson 01:40 PM SVG to the 1st OM angio performed in multiple views. twilson 01:40 PM At 13:40 the ACT was 156 seconds. twilson 01:41 PM Time: 13:41 Heparin 4000 units Intravenous Given by Rosie Yan RN twilson 01:41 PM Wire reinserted. twilson 01:42 PM Catheter removed. twilson 01:42 PM 5Fr FL 4 catheter inserted over the wire DN twilson 01:43 PM HR=43 bpm, NIBP=97/59 mmhg, SpO2=99.0 %, Resp=17 B/min 01:43 PM Wire removed. twilson 01:46 PM Time: 13:45 Atropine 0.25 mg Intravenous Given by Rosie Yan RN twilson 01:48 PM Wire reinserted. twilson 01:48 PM Catheter removed. twilson 01:48 PM HR=70 bpm, IINC=646/67 mmhg, SpO2=95.0 %, Resp=22 B/min 01:48 PM 5Fr FL5 catheter inserted over the wire [id number] twilson 01:48 PM Wire removed. twilson 01:48 PM Wire reinserted. twilson 01:48 PM Catheter removed. twilson 01:49 PM 5Fr FL3.5 catheter inserted over the wire [id number] twilson 01:50 PM Wire removed. twilson 01:52 PM Wire reinserted. twilson 01:52 PM Catheter removed. twilson 01:53 PM 5Fr FL 4 catheter inserted over the wire DNC twilson 01:53 PM HR=65 bpm, XQTL=854/63 mmhg, SpO2=96.0 %, Resp=21 B/min 01:54 PM LCA angiography performed in multiple views. twilson 01:55 PM Wire reinserted. Catheter removed. New FR4 catheter inserted. twilson 01:57 PM RCA angiography performed in multiple views. twilson 01:58 PM HR=80 bpm, DERO=444/74 mmhg, SpO2=97.0 %, Resp=24 B/min 01:59 PM Recorded Pressure: Ao, HR=80, Condition=Condition 1 (Aorta) Ao 88/63/77 01:59 PM SVG to the 1st Diagonal angio performed in multiple views. twilson 02:01 PM Wire reinserted twilson 02:01 PM Catheter removed twilson 02:02 PM Preparing for intervention. twilson 02:02 PM Inflation device was opened. twilson 02:03 PM 6Fr JR 4 Runway guide catheter was used to cannulate the PCI vessel successfully. reused? No twilson 02:03 PM HR=84 bpm, YIVP=722/69 mmhg, SpO2=97.0 %, Resp=20 B/min 02:03 PM Recorded Pressure: Ao, HR=76, Condition=Condition 1 (Aorta) Ao 110/61/83 02:04 PM Drawing an ACT. twilson 02:04 PM Recorded Pressure: Ao, HR=80, Condition=Condition 1 (Aorta) Ao 109/60/83 02:08 PM HR=76 bpm, TFFX=621/78 mmhg, SpO2=99.0 %, Resp=21 B/min 02:09 PM At 14:09 the ACT was 271 seconds. twilson 02:12 PM Time: 14:09 Aggrastat Bolus: 42 ml Intravenous Given by Rosie Yan RN Wagoner pump twilson 02:12 PM Time: 14:12 Aggrastat 12.5mg/250ml 7.5 ml Intravenous Given by Rosie Yan RN Wagoner pump twilson 02:12 PM Recorded Pressure: Ao, HR=80, Condition=Condition 1 (Aorta) Ao 120/66/91 02:13 PM HR=78 bpm, NVDX=989/86 mmhg, SpO2=98.0 %, Resp=21 B/min 02:15 PM Wire reinserted. twilson 02:15 PM Guide catheter removed. twilson 02:16 PM 6Fr LCB Runway guide catheter was used to cannulate the PCI vessel successfully. reused? No twilson 02:18 PM HR=75 bpm, RJRD=041/78 mmhg, SpO2=98.0 %, Resp=21 B/min 02:19 PM PCI lesion in 1st Marginal. Pre Stenosis: 90 Pre JOSH Flow: 3: Complete and Brisk Flow/Perfusion twilson 02:20 PM Wire removed. twilson 02:23 PM HR=76 bpm, JHTP=399/86 mmhg, SpO2=99.0 %, Resp=21 B/min 02:24 PM Recorded Pressure: Ao, HR=61, Condition=Condition 1 (Aorta) Ao 125/57/87 02:25 PM Called pharmacy to verify concentration of Nipride. Pharmacist noted 0.4 ml in 100 ml bag of D5W. This would make the concentration 100mcg/ml OR 0.25 ml. twilson 02:26 PM .014 [employer] [place] 190cm guide wire across target lesion- successful. reused? No twilson 02:26 PM Time: 14:26 Nipride 25 mcg Intracoronary Given by Meño Smith MD twilson 02:26 PM Recorded ECG: HR=80 Condition=Condition 1 02:28 PM HR=81 bpm, WUXW=255/77 mmhg, SpO2=99.0 %, Resp=23 B/min 02:29 PM 2.0 mm x 25 mm Mini Trek Rx balloon across target lesion- successful. reused? No twilson 02:30 PM Recorded Pressure: Ao, HR=79, Condition=Condition 1 (Aorta) Ao 114/71/92 02:30 PM Balloon inflated @ 6 amber for 10 seconds twilson 02:31 PM Balloon inflated @ 6 amber for 10 seconds twilson 02:31 PM Balloon catheter removed intact. twilson 02:31 PM Recorded Pressure: Ao, HR=77, Condition=Condition 1 (Aorta) Ao 125/67/93 02:33 PM Time: 14:32 Nipride 25 mcg Intracoronary Given by Meño Smith MD twilson 02:33 PM HR=81 bpm, BAGN=443/66 mmhg, SjN1=408.0 %, Resp=20 B/min 02:34 PM Recorded Pressure: Ao, HR=80, Condition=Condition 1 (Aorta) Ao 93/56/73 02:37 PM Time: 14:37 Nipride 25 mcg Intracoronary Given by Meño Smith MD twilson 02:37 PM Recorded Pressure: Ao, HR=60, Condition=Condition 1 (Aorta) Ao 116/52/78 02:39 PM HR=67 bpm, HVMX=954/85 mmhg, SpO2=99.0 %, Resp=20 B/min 02:39 PM Recorded ECG: HR=67 Condition=Condition 1 02:40 PM Guidewire removed. twilson 02:40 PM J-wire reinserted. twilson 02:40 PM Guide catheter removed. twilson 02:43 PM Exchanging back to short 6FR sheath. twilson 02:43 PM HR=68 bpm, EQCB=906/78 mmhg, SpO2=88.0 %, Resp=14 B/min 02:45 PM Procedure completed at 14:45 12/05/2017 twilson 02:45 PM Did you address JOSH flow and Dominance? Yes twilson 02:46 PM Coronary Dominance: right twilson 02:46 PM Sign out completed: Radiation Dose 2207.08 mGy, 22669 cGy/cm2 Fluoro Time: 27.3 Isovue 370 - 200ml contrast 137 ml given by Jocelyn Smith MD. Complications: NoneCardiac Rehab Consult needed: NoConfirmed administered medications: Yes twilson 02:47 PM Drawing an ACT. twilson 02:48 PM HR=68 bpm, RBGJ=872/83 mmhg, FrI6=923.0 %, Resp=18 B/min 02:51 PM At 14:51 the ACT was 245 seconds. twilson 02:51 PM Family placed in consult room. twilson 02:51 PM Isovue 370 - 200ml,1 Bottle(s) used. twilson 02:51 PM Sheath left in place to be pulled on floor/holding areaV+Pad twilson 02:51 PM Estimated Blood Loss: less than 20cc twilson 02:52 PM Post ECG NSR twilson 02:52 PM Post Blood Pressure 149/83 twilson 02:52 PM 14:52 Post Pulses Bilateral DP & PT Doppler twilson 02:52 PM Information taught Cardiac Cath and PCI twilson 02:52 PM Education needs Procedure, Plan of Care, and Responsibilities of Patient in Care twilson 02:52 PM Learning barriers :None twilson 02:52 PM Education Methods Verbal twilson 02:52 PM Education evaluation Able to repeat information twilson 02:52 PM Site status No bleeding/hematoma - Rt Groin as reported by Sites, Elisha RT (R) at 14:52 twilson 02:52 PM Opsite applied twilson 02:53 PM Lesion found in Proximal RCA. Pre Stenosis: 70 Pre JOSH Flow: twilson 02:53 PM Lesion found in Proximal LAD. Pre Stenosis: 100 Pre JOSH Flow: twilson 02:53 PM Lesion found in Distal Circumflex. Pre Stenosis: 100 Pre JOSH Flow: twilson 02:53 PM HR=67 bpm, YUZB=741/81 mmhg, SpO2=99.0 %, Resp=18 B/min 02:53 PM Proximal Left Anterior Descending Coronary Artery with 100% stenosis. If graft is supplying this territory, 0 % stenosis. twilson 02:53 PM Circumflex, Obtuse Marginal, Left Posterior Descending, and Left Posterolateral Coronary Arteries with 100 % stenosis. If graft is supplying this area, 0 % stenosis twilson 02:53 PM Right Coronary, Right Posterior Descending Arteries with Right Posterolateral and Acute Marginal branches with 70 % stenosis. If graft is supplying this area, 0 % stenosis twilson 02:54 PM Patient to be on blood thinners and re-evaluated for cath Thursday12/07/17 for SVG to g possible stent placement per Dr. Smith. twilson 03:00 PM Time: 15:00 Plavix 300 mg Orally Given by Rosie Yan RN twry 03:04 PM Report given to Randell PATINO Pt taken to Room #3. 15:03 twilson 03:04 PM Patient out of room: 15:04 twry Complications Complication None Hemodynamics Pressures Site Systolic/A Wave Diastolic/V Wave Mean AO 81 45 62 AO 62 41 51 AO 88 63 77 AO 110 61 83 AO 109 60 83 AO 120 66 91 AO 125 57 87 AO 114 71 92 AO 125 67 93 AO 93 56 73 AO 116 52 78 Post Procedure Information Blood Pressure: 149/83 mmHg Rhythm: NSR Post procedural instructions were given Site Checks Time Location Status Staff Sheath In? Note 02:52 PM Rt Groin No bleeding/hematoma Sites, Elisha RT (R) Pulses Time Site Pre-Procedure Post-Procedure Note 12/05/2017 1:13:00 PM Bilateral DP & PT 1+ 12/05/2017 1:14:00 PM Bilateral radial 2+ 2:52:00 PM Bilateral DP & PT Doppler Updated by RT Niyah Tracy) on 12/05/2017 3:09:19 PM electronically signed on 12/05/2017 3:09:51 PM with status of Final
--- NOTE | 2017-12-05 16:07 | Internal Med Progress Note ---
Date of Encounter: 12/05/17 Time of Encounter: 09:00 - Assessment and plan (1) NSTEMI (non-ST elevated myocardial infarction) Current Visit: Yes Status: Acute Assessment and plan: Patient admitted with chest pain, EKG showed ischemic changes, troponin elevation up to 23.12. Started on anticoagulation with IV heparin, continue aspirin, statin, Imdur, ARB; on IV nitroglycerin drip for chest pain; continue telemetry monitoring. Currently chest pain-free. Cardiology consult appreciated, recommend left heart catheterization, patient is yet to discuss with his and family. Echocardiogram shows moderate to severe LV systolic dysfunction, mild LV dilation and mild diastolic dysfunction, recommend repeat study with Definity. High risk for complications; (2) CAD (coronary artery disease) Current Visit: Yes Status: Chronic Assessment and plan: plan as above; Qualifiers: Coronary Disease-Associated Artery/Lesion type: bypass graft [place] vs. transplanted heart: [place] heart Associated angina: without angina Qualified Code(s): I25.810 - Atherosclerosis of coronary artery bypass graft(s) without angina pectoris (3) Hypertension Current Visit: Yes Status: Chronic Qualifiers: Hypertension type: essential hypertension Qualified Code(s): I10 - Essential (primary) hypertension - Time Spent With Patient Total time spent is greater than 50% in coordination of care (as documented) at patient's floor/unit and/or counseling patient: - Subjective Interval history: Reports feeling better. Improved chest pain. No shortness of breath, palpitations, leg swelling. No recent cardiac workup. - Constitutional Vitals: Temp Pulse Resp BP Pulse Ox 97.6 F 68 18 146/85 99 12/05/17 15:25 12/05/17 15:25 12/05/17 15:25 12/05/17 15:25 12/05/17 15:25 General appearance: Present: A&O X 3, answers questions appropriately - Respiratory Respiratory exam: Present: CTAB. Absent: accessory muscle use, rales, rhonchi, wheezes - Cardiovascular Cardiovascular exam: Present: RRR, +S1, +S2. Absent: diastolic murmur, gallop, rubs, systolic murmur - GI/Abdominal GI/Abdominal exam: Present: normal bowel sounds, soft, no peritoneal signs. Absent: distended, tenderness - Extremities Exam Extremities exam: Present: full ROM, warm, radial pulses palpable and symmetrical. Absent: calf tenderness, cyanotic, pedal edema - Neurological Exam Neurological exam: Present: CN II-XII intact, oriented X3, no focal deficits. Absent: pronater drift, facial droop, speech deficit Internal Medicine: Result - Labs CBC & Chem 7: 12/05/17 05:40 12/05/17 05:40 Labs: Cardiac Enzymes 12/05/17 Range/Units 12:46 Troponin I 11.67 H* (< 0.04) ng/mL - ABG Interpretation ABG results: PT/INR, D-dimer PT 12.8 Seconds (9.4-12.1) H 12/04/17 16:06 Consult Discharge Plan - Plan Referrals: Gamal,Chan Underwood MD [Primary Care Provider] -
[2017-12-06 03:10] LABS: Basophils # 0.1 K/mcL (0.0-0.2); Basophils % 0.7 %; Eosinophils # 0.2 K/mcL (0.0-0.6); Eosinophils % 3.1 %; Hematocrit 41.4 % (37.5-50.1); Hemoglobin 13.7 g/dL (12.9-16.9); Immature Granulocytes % 0.3 % (0-4); Lymphocytes # 1.7 K/mcL (0.6-4.6); Lymphocytes % 25.4 %; Mean Corpuscular HGB Conc 33.1 g/dL (31.6-35.5); Mean Corpuscular Hemoglobin 32.2 pg (28.0-33.3); Mean Corpuscular Volume 97.2 fL (83.0-100.0); Mean Platelet Volume 10.1 fL (9.4-12.4); Monocytes # 0.7 K/mcL (0.0-1.3); Monocytes % 10.2 %; Platelet Count 153 K/mcL (140-400); Red Blood Count 4.26 M/mcL (4.19-5.50); Segmented Neutrophils % 60.3 %
[2017-12-06 03:31] LABS: BUN/Creatinine Ratio 17 (6-26); Blood Urea Nitrogen 20 mg/dL (8-23); Calcium 8.6 mg/dL (8.6-10.3); Carbon Dioxide 25 mEq/L (23-29); Chloride 109 mEq/L (98-107); Glucose 102 mg/dL (70-105); Osmolality,Calculated 289 (280-300); Potassium 4.4 mEq/L (3.5-5.1); Sodium 138 mEq/L (136-145); eGFR For Non-African Americans 57 (> 60)
[2017-12-06] MEDS ORDERED: Perflutren Lipid Microsphere 1.3 ML in 0.9 % Sodium Chloride 8.7 ML IVP ONE (07:40)
[2017-12-06] MEDS: Tirofiban 12.5 MG/250ML 12.5 MG/250 ML BAG IVC SCH (07:57)
[2017-12-06] MEDS: Isosorbide MONOnitrate (24 HR) 60 MG TAB.ER.24H PO SCH (09:27)
[2017-12-06] MEDS: Aspirin 325 MG TABLET PO SCH (09:27)
--- NOTE | 2017-12-06 09:56 | Cardiology Progress Note ---
Date of Encounter: 12/06/17 Time of Encounter: 09:00 Assessment and Plan (1) NSTEMI (non-ST elevated myocardial infarction) Current Visit: Yes Status: Acute Typical chest pain symptoms. Peak troponin 23.12. Ischemic ECG changes present. No recent ischemic evaluation, reports last [facility] in 2005, 4 stents at that time. No chest pain overnight, no issues with right femoral cath site. TTE 12/05/17: moderate to severely reduced LV systolic dysfunction, mildly dilated LV, mild AR/MR--repeat study with definity recommended, results pending. [facility] 12/05/17: PTCA of mid SVG-1st OM, s/p CABG 2 of 3 patent bypass grafts, unable to visualize ALAMO to LAD d/t calcifications. Patent SVG-1st diagonal. Repeat TTE pending. Discussed with Dr. Smith (interventionalist); recommend aggrastat infusion for 24 hours post LHC--end time 12/06/17 at 2:00 PM. Continue asa, plavix, and imdur. Hold BB for now, consider starting upon discharge if HR will tolerate. Will continue to follow. (2) Hx of CABG Current Visit: Yes Status: Acute Hx of 3vCABG in 2002. Reports 4 stents in 2005. Has not been on BB in the outpatient setting, reportedly declines. Asa, statin. Discussion w patient/family: The assessment and plan as outlined above was discussed with the patient and/or family members who expressed understanding and agreement. All questions were answered. Thank you for involving us in the care of your patient. Please call with any questions. The patient will be discussed and reviewed with Dr. Gastelum; changes to be made accordingly. Subjective Principal diagnosis: NSTEMI Interval history: Seen and examined. No complaints this morning upon exam--no recurrent chest pain/discomfort. Reports back discomfort when he lays flat, however improves with incline or laying on his side. Objective Vital Signs, Last 4 Hours Temp Pulse Resp BP Pulse Ox 12/06/17 07:50 97.5 F L 73 18 102/73 97 General: Conversant, No Apparent Distress HEENT: Atraumatic, Normocephaly, Mucus Membranes Moist Cardiac: Reg Rate and Rhythm, Normal S1 and S2 Lungs: Normal Breath Sounds Neuro: Alert and responsive Skin: No rashes noted on visualized skin Musculoskeletal: No Chest Wall Tenderness Extremities: No Edema, Normal Pulses Other: right femoral cath site: small amount of soft bruising noted. No hematoma or bleeding. +2 DP/PT pulses. Results 12/06/17 02:45 12/06/17 02:45 Lab Results 12/05/17 12/05/17 12/06/17 12:46 18:46 02:45 WBC 6.7 Hgb 13.7 D Hct 41.4 Plt Count 153 Sodium Potassium Chloride Carbon Dioxide BUN Creatinine Glucose Calcium Troponin I 11.67 H* 9.49 H* 12/06/17 02:45 WBC Hgb Hct Plt Count Sodium 138 Potassium 4.4 Chloride 109 H Carbon Dioxide 25 BUN 20 Creatinine 1.21 Glucose 102 Calcium 8.6 Troponin I Active Medications Aspirin (Aspirin) 325 mg PO DAILY [facility] Stop: 06/06/18 09:01 Last Admin: 12/06/17 09:27 Dose: 325 mg Atorvastatin Calcium (Lipitor) 20 mg PO HS [facility] Stop: 06/05/18 21:01 Last Admin: 12/05/17 20:39 Dose: 20 mg Clopidogrel Bisulfate (Plavix) 75 mg PO DAILY [facility] Stop: 06/07/18 09:01 Last Admin: 12/06/17 09:27 Dose: 75 mg Tirofiban/Sodium Chloride (Aggrastat 12.5 Mg/250 Ml) 12.5 mg in 250 mls @ 15.678 mls/hr IVC .[id number] [facility] PRN Reason: 0.15 MCG/KG/MIN Stop: 12/06/17 14:00 Last Admin: 12/06/17 07:57 Dose: Not Given Isosorbide Mononitrate (Imdur) 60 mg PO DAILY [facility] Stop: 06/06/18 09:01 Last Admin: 12/06/17 09:27 Dose: 60 mg Losartan Potassium (Cozaar) 50 mg PO DAILY [facility] Stop: 06/06/18 09:01 Last Admin: 12/06/17 09:26 Dose: 50 mg Naloxone HCl (Narcan) 0.4 mg IVP Q2MIN PRN PRN Reason: SEE COMMENTS Stop: 06/05/18 18:57 - Imaging and Cardiology Echo: report reviewed Cardiac cath: report reviewed Other Results: 12 hour tele: avg HR=76 SR. 1st AVB. Idioventricular rhythm noted. - EKG Interpretation EKG results cardiology: personally reviewed Consult Discharge Plan - Plan Referrals: Chan Yeung MD [Primary Care Provider] -
--- NOTE | 2017-12-06 12:56 | Internal Med Progress Note ---
Date of Encounter: 12/06/17 Time of Encounter: 09:00 - Assessment and plan (1) NSTEMI (non-ST elevated myocardial infarction) Current Visit: Yes Status: Acute Assessment and plan: Patient admitted with chest pain, EKG showed ischemic changes, troponin elevation up to 23.12. Off IV heparin, IV NTG now; continue aspirin, statin, Imdur, ARB; to start beta raoul at discharge if HR tolerates; continue telemetry monitoring. Currently chest pain-free. Cardiology on board; Echocardiogram shows moderate to severe LV systolic dysfunction, mild LV dilation and mild diastolic dysfunction, recommend repeat study with Definity. High risk for complications; [facility] report not available but per Cardiology- PTCA of mid SVG-1st OM, s/p CABG 2 of 3 patent bypass grafts, unable to visualize ALAMO to LAD d/t calcifications. Patent SVG-1st diagonal. On Tirofiban drip for 24hours; (2) CAD (coronary artery disease) Current Visit: Yes Status: Chronic Qualifiers: Coronary Disease-Associated Artery/Lesion type: bypass graft [place] vs. transplanted heart: [place] heart Associated angina: without angina Qualified Code(s): I25.810 - Atherosclerosis of coronary artery bypass graft(s) without angina pectoris (3) Hypertension Current Visit: Yes Status: Chronic Qualifiers: Hypertension type: essential hypertension Qualified Code(s): I10 - Essential (primary) hypertension - Time Spent With Patient Total time spent is greater than 50% in coordination of care (as documented) at patient's floor/unit and/or counseling patient: - Subjective Interval history: Denies chest pain, shortness of breath, palpitations; feels well, awaiting repeat cardiac cath in am; - Constitutional Vitals: Temp Pulse Resp BP Pulse Ox 97.6 F 71 18 110/66 95 12/06/17 11:18 12/06/17 11:18 12/06/17 11:18 12/06/17 11:18 12/06/17 11:18 General appearance: Present: A&O X 3, answers questions appropriately - Respiratory Respiratory exam: Present: CTAB. Absent: accessory muscle use, rales, rhonchi, wheezes - Cardiovascular Cardiovascular exam: Present: RRR, +S1, +S2. Absent: diastolic murmur, gallop, rubs, systolic murmur Internal Medicine: Result - Labs CBC & Chem 7: 07/29/18 02:45 12/06/17 02:45 Labs: Short CBC 12/06/17 Range/Units 02:45 WBC 6.7 (4.3-11.1) K/mcL Hgb 13.7 D (12.9-16.9) g/dL Hct 41.4 (37.5-50.1) % Plt Count 153 (140-400) K/mcL Neutrophils # 4.0 (1.6-8.9) K/mcL BMP 12/06/17 02:45 Sodium 138 Potassium 4.4 Chloride 109 H Carbon Dioxide 25 BUN 20 Creatinine 1.21 Glucose 102 Calcium 8.6 Cardiac Enzymes 12/05/17 12/05/17 Range/Units 12:46 18:46 Troponin I 11.67 H* 9.49 H* (< 0.04) ng/mL - ABG Interpretation ABG results: PT/INR, D-dimer PT 12.8 Seconds (9.4-12.1) H 12/04/17 16:06 Consult Discharge Plan - Plan Referrals: Chan Yeung MD [Primary Care Provider] -
[2017-12-07] MEDS: Aspirin 325 MG TABLET PO SCH (08:22)
[2017-12-07] MEDS: Isosorbide MONOnitrate (24 HR) 60 MG TAB.ER.24H PO SCH (08:22)
--- NOTE | 2017-12-07 09:47 | Cardiology Progress Note ---
Date of Encounter: 12/07/17 Time of Encounter: 09:00 Assessment and Plan (1) NSTEMI (non-ST elevated myocardial infarction) Current Visit: Yes Status: Acute Typical chest pain symptoms. Peak troponin 23.12. Ischemic ECG changes present. No recent ischemic evaluation, reports last [facility] in 2005, 4 stents at that time. No chest pain overnight, no issues with right femoral cath site. TTE 12/05/17: moderate to severely reduced LV systolic dysfunction, mildly dilated LV, mild AR/MR--repeat study with definity recommended, results pending. [facility] 12/05/17: PTCA of mid SVG-1st OM, s/p CABG 2 of 3 patent bypass grafts, unable to visualize ALAMO to LAD d/t calcifications. Patent SVG-1st diagonal; was on aggrastat 24 hours post procedure. Repeat TTE demonstrated EF 40%. Continue asa, plavix, and imdur. Hold BB for now. Will continue to follow. (2) Hx of CABG Current Visit: Yes Status: Acute Hx of 3vCABG in 2002. Reports 4 stents in 2005. Has not been on BB in the outpatient setting, reportedly declines. Asa, statin. Discussion w patient/family: The assessment and plan as outlined above was discussed with the patient and/or family members who expressed understanding and agreement. All questions were answered. Thank you for involving us in the care of your patient. Please call with any questions. The patient will be discussed and reviewed with Dr. Abdi; changes to be made accordingly. Subjective Principal diagnosis: NSTEMI Interval history: Seen and examined. No complaints this morning upon exam--no recurrent chest pain/discomfort or angina equivalent. Reports back discomfort when he lays flat, however improves with incline or laying on his side. No issues with right groin cath site. Objective Vital Signs, Last 4 Hours Temp Pulse Resp BP Pulse Ox 12/07/17 08:25 98.0 F 72 18 111/84 94 12/07/17 06:27 98.0 F 72 18 111/84 94 General: Conversant, No Apparent Distress HEENT: Atraumatic, Normocephaly, Mucus Membranes Moist Cardiac: Other (irregularly irregular) Lungs: Normal Breath Sounds Neuro: Alert and responsive Abdomen: Soft Skin: No rashes noted on visualized skin Musculoskeletal: No Chest Wall Tenderness Extremities: No Edema, Normal Pulses Results 12/06/17 02:45 12/06/17 02:45 Active Medications Aspirin (Aspirin) 325 mg PO DAILY [facility] Stop: 06/06/18 09:01 Last Admin: 12/07/17 08:22 Dose: 325 mg Atorvastatin Calcium (Lipitor) 20 mg PO HS [facility] Stop: 06/05/18 21:01 Last Admin: 12/06/17 20:33 Dose: 20 mg Clopidogrel Bisulfate (Plavix) 75 mg PO DAILY [facility] Stop: 06/07/18 09:01 Last Admin: 12/07/17 08:22 Dose: 75 mg Isosorbide Mononitrate (Imdur) 60 mg PO DAILY [facility] Stop: 06/06/18 09:01 Last Admin: 12/07/17 08:22 Dose: 60 mg Losartan Potassium (Cozaar) 50 mg PO DAILY [facility] Stop: 06/06/18 09:01 Last Admin: 12/07/17 08:22 Dose: 50 mg Naloxone HCl (Narcan) 0.4 mg IVP Q2MIN PRN PRN Reason: SEE COMMENTS Stop: 06/05/18 18:57 - Imaging and Cardiology Echo: report reviewed Cardiac cath: report reviewed Other Results: 12 hour tele: avg HR=75 SR. Idioventricular rhythm noted at times. - EKG Interpretation EKG results cardiology: personally reviewed Consult Discharge Plan - Plan Referrals: Chan Yeung MD [Primary Care Provider] - (Patient has to make his own follow up per Dr. Florence office) Leisa Aguilera CNP [Partnered Physician] - (Office will call patient at home with follow up)
--- NOTE | 2017-12-07 12:51 | Internal Med Progress Note ---
Hospitalist Progress Note - Encounter Date of Encounter: 12/07/17 Time of Encounter: 12:47 - Subjective Interval History: Patient denies shortness of breath, chest pain, palpitation, headache, dizziness , abdominal pain or urinary bowel complaint. Family at bedside. Review of the labs and consulted note. - Exam Vitals: Temp Pulse Resp BP Pulse Ox 97.6 F 75 17 90/51 92 12/07/17 11:56 12/07/17 11:56 12/07/17 11:56 12/07/17 11:56 12/07/17 11:56 Exam: General appearance: No acute distress, A&O X 3 Head exam: Atraumatic Eye exam: EOMI, PERRLA ENT exam: Moist oral mucosa Neck nontender, supple Respiratory exam: Clear to auscultation bilaterally Cardiovascular exam: Regular rate and rhythm, no systolic murmur Abdominal exam: Soft, nontender, nondistended, positive bowel sounds Extremities exam: No calf tenderness, no pedal edema Present: Skin-, warm, dry, intact Neurological exam: Alert, awake, oriented 3, CN II-XII intact, no focal deficits. No facial droop. Normal speech. - Assessment and Plan (1) NSTEMI (non-ST elevated myocardial infarction) Current Visit: Yes Status: Acute Assessment and Plan: Patient admitted with chest pain, EKG showed ischemic changes, troponin elevation up to 23.12 and not trending down. No active chest pain. [employer]'s on board and did perform heart catheter-PTCA of mid SVG-1st OM, s /p CABG 2 of 3 patent bypass grafts, unable to visualize ALAMO to LAD d/t calcifications. Patent SVG-1st diagonal. On postprocedure Tirofiban drip for 24hours. Stopped IV heparin and IV nitroglycerin. Continue aspirin, statin, Imdur, ARB. May consider beta raoul at discharge if heart rate tolerate. Plan for discharge as per cardiology advice. Echocardiogram shows moderate to severe LV systolic dysfunction, mild LV dilation and mild diastolic dysfunction, recommend repeat study with Definity. (2) Hypertension Current Visit: Yes Status: Chronic Assessment and Plan: Blood pressure is running low normal. Close monitoring. Will plan to cut down ARB if further lower her blood pressure after discussing with cardiology (3) CAD (coronary artery disease) Current Visit: Yes Status: Chronic Assessment and Plan: plan as above. - Time Spent with Patient Total time spent is greater than 50% in coordination of care (as documented) at patient's floor/unit and/or counseling patient: 25 - 35 minutes Internal Medicine: Result - Labs CBC & Chem 7: 12/06/17 02:45 12/06/17 02:45 - ABG Interpretation ABG results: PT/INR, D-dimer PT 12.8 Seconds (9.4-12.1) H 12/04/17 16:06 - Impressions Impressions Echocardiogram Limited Views 12/06/17 09:48 Impressions: LVEF estimated 40%. Even with Definity, not all LV wall segments were optimally visualized. Atypical septal motion consistent with post-operative status. There is no LV thrombus. Left Ventricular Wall Motion: Rest Echo Findings The apex, apical inferior, mid inferior, basal inferior, apical anterior, apical septal, mid inferior septal, basal inferior septal, apical lateral, mid anterior lateral, basal anterior lateral, mid inferior lateral and basal inferior lateral nelson were hypokinetic. The mid anterior septal and basal anterior septal nelson were dyskinetic. The mid anterior and basal anterior nelson were not visualized. Findings: Study Quality * Technically challenging echocardiographic windows. ECG Findings * Normal sinus rhythm. Left Ventricle * Atypical septal motion consistent with post-operative status. * There is no LV thrombus. * Definity echo contrast was used. * LVEF 40%. * Normal LV chamber size and wall thickness. Aorta * Normally sized aortic root. Pericardium * There is no pericardial effusion present. Right Ventricle * Normal right ventricular structure and function. Consult Discharge Plan - Plan Referrals: Chan Yeung MD [Primary Care Provider] - (Patient has to make his own follow up per Dr. Florence office) Leisa Aguilera CNP [Partnered Physician] - (Office will call patient at home with follow up) (2) Hypertension Qualifiers: Hypertension type: essential hypertension Qualified Code(s): I10 - Essential (primary) hypertension (3) CAD (coronary artery disease) Qualifiers: Coronary Disease-Associated Artery/Lesion type: bypass graft [place] vs. transplanted heart: [place] heart Associated angina: without angina Qualified Code(s): I25.810 - Atherosclerosis of coronary artery bypass graft(s) without angina pectoris
[2017-12-08] MEDS: Isosorbide MONOnitrate (24 HR) 60 MG TAB.ER.24H PO SCH (08:00)
[2017-12-08] MEDS: Aspirin 325 MG TABLET PO SCH (08:00)
--- NOTE | 2017-12-08 11:13 | Cardiology Progress Note ---
Date of Encounter: 12/08/17 Time of Encounter: 10:30 Assessment and Plan (1) NSTEMI (non-ST elevated myocardial infarction) Current Visit: Yes Status: Acute Typical chest pain symptoms. Peak troponin 23.12. Ischemic ECG changes present. No recent ischemic evaluation, reports last [facility] in 2005, 4 stents at that time. No chest pain overnight, no issues with right femoral cath site. TTE 12/05/17: moderate to severely reduced LV systolic dysfunction, mildly dilated LV, mild AR/MR--repeat study with definity recommended, results pending. [facility] 12/05/17: PTCA of mid SVG-1st OM, s/p CABG 2 of 3 patent bypass grafts, unable to visualize ALAMO to LAD d/t calcifications. Patent SVG-1st diagonal; was on aggrastat 24 hours post procedure. Repeat TTE demonstrated EF 40%. Discussed with Dr. Abdi; patient has not been on BB in the past d/t refusal; avg HR overnight 67; he does nocturnal bradycardia, would recommend stopping BB as started by Hospitalist. Discussed with Dr. Abdi; stop cozaar and start Amlodipine 5 mg in AM. Will continue to follow. (2) Hx of CABG Current Visit: Yes Status: Acute Hx of 3vCABG in 2002. Reports 4 stents in 2005. Has not been on BB in the outpatient setting, reportedly declines. Asa, statin. Discussion w patient/family: The assessment and plan as outlined above was discussed with the patient and/or family members who expressed understanding and agreement. All questions were answered. Thank you for involving us in the care of your patient. Please call with any questions. The patient will be discussed and reviewed with Dr. Abdi; changes to be made accordingly. Subjective Principal diagnosis: NSTEMI Interval history: Seen and examined. Up to bedside chair; has been ambulating in room without symptoms. Is eager to be discharged. No complaints this morning upon exam--no recurrent chest pain/discomfort or angina equivalent. Reports back discomfort when he lays flat, however improves with incline or laying on his side--has been chronic for nearly 3-4 years. No issues with right groin cath site. Objective Vital Signs, Last 4 Hours Temp Pulse Resp BP Pulse Ox 12/08/17 10:59 98.1 F 58 16 110/56 96 12/08/17 08:00 63 12/08/17 07:46 97.8 F 68 18 133/74 94 General: Conversant, No Apparent Distress HEENT: Atraumatic, Normocephaly Cardiac: Reg Rate and Rhythm, Normal S1 and S2 Lungs: Normal Breath Sounds Neuro: Alert and responsive Abdomen: Soft Skin: No rashes noted on visualized skin Musculoskeletal: No Chest Wall Tenderness Extremities: No Edema, Normal Pulses Results 12/06/17 02:45 12/06/17 02:45 Active Medications Aspirin (Aspirin) 325 mg PO DAILY [facility] Stop: 06/06/18 09:01 Last Admin: 12/08/17 08:00 Dose: 325 mg Atorvastatin Calcium (Lipitor) 20 mg PO HS [facility] Stop: 06/05/18 21:01 Last Admin: 12/07/17 21:15 Dose: 20 mg Clopidogrel Bisulfate (Plavix) 75 mg PO DAILY [facility] Stop: 06/07/18 09:01 Last Admin: 12/08/17 08:00 Dose: 75 mg Isosorbide Mononitrate (Imdur) 60 mg PO DAILY [facility] Stop: 06/06/18 09:01 Last Admin: 12/08/17 08:00 Dose: 60 mg Losartan Potassium (Cozaar) 50 mg PO DAILY [facility] Stop: 06/06/18 09:01 Last Admin: 12/08/17 08:00 Dose: 50 mg Metoprolol Tartrate (Lopressor) 12.5 mg PO BID [facility] Stop: 06/09/18 09:01 Last Admin: 12/08/17 08:00 Dose: 12.5 mg Naloxone HCl (Narcan) 0.4 mg IVP Q2MIN PRN PRN Reason: SEE COMMENTS Stop: 06/05/18 18:57 - Imaging and Cardiology Echo: report reviewed Cardiac cath: report reviewed Other Results: 12 hour tele: avg HR=67 SR. Frequent PVCs, PACs. AIVR noted. - EKG Interpretation EKG results cardiology: personally reviewed Consult Discharge Plan - Plan Referrals: Chan Yeung MD [Primary Care Provider] - (Patient has to make his own follow up per Dr. Florence office) Leisa Aguilera CNP [Partnered Physician] - (Office will call patient at home with follow up)
[2017-12-08 16:15] VITALS: BP 114/61
--- NOTE | 2017-12-08 17:14 | Discharge Summary ---
- NOTES TO OUTPATIENT PROVIDER Notes to Outpatient Provider: Follow with machine spreader Dr. Abdi in 2 weeks. Follow-up with PCP in one week. Monitor blood pressure and heart rate at home if any concern call PCP or cardiology office Date of Encounter: 12/08/17 Time of Encounter: 17:11 - Discharge Diagnosis (1) NSTEMI (non-ST elevated myocardial infarction) Priority: Primary Status: Acute Assessment and Plan: History of CABG. Status post left heart catheter-PTCA of mid SVG-1st OM, unable to visualize ALAMO to LAD d/t calcifications. Patent SVG-1st diagonal. Patient was On postprocedure Tirofiban drip for 24hours. Initially patient was on IV heparin and IV nitroglycerin that stopped eventually. Quality Assurance Monitor Body's okay to discharge patient on aspirin and Plavix, Imdur U, statin. Beta raoul was not given as patient had sinus bradycardia intermittently. Cozaar was also stopped by machine spreader team but is started on amlodipine. Echocardiogram shows moderate to severe LV systolic dysfunction, mild LV dilation and mild diastolic dysfunction, recommend repeat study with Definity. (2) Hypertension Priority: Secondary Status: Chronic Assessment and Plan: Blood pressure is running low normal. Stopped ARB and beta raoul but a started low dose amlodipine as per cardiology recommendation . Qualifiers: Hypertension type: essential hypertension Qualified Code(s): I10 - Essential (primary) hypertension (3) CAD (coronary artery disease) Priority: Secondary Status: Chronic Assessment and Plan: plan as above. Qualifiers: Coronary Disease-Associated Artery/Lesion type: bypass graft Elem vs. transplanted heart: eagle heart Associated angina: without angina Qualified Code(s): I25.810 - Atherosclerosis of coronary artery bypass graft(s) without angina pectoris Hospital course: Mr. Jimenez is a 87 year old male patient got admitted for NST SD management. Quality Assurance Monitor Body was consulted and perform heart catheter with PTCA of mid SVC first OM, status post CABG to off 3 patent bypass grafts, unable to visualize alamo to LAD due to calcification. Patent SVC first diagonal. Echocardiogram with EF 40%. Quality Assurance Monitor Body's okay to discharge patient home with follow-up appointment in 2 weeks. It was advice to stop Cozaar and a started amlodipine 5 mg in morning daily. Beta raoul was not started due to concern of nocturnal bradycardia. Discussed discharge plan with patient and family. At the time of discharge patient is clinically and hemodynamically stable, tolerating ambulation and oral diet. Discharge discussed with: patient, family - Time Spent with Patient Total time spent providing and/or coordinating discharge services: - Discharge Medications Home Medications: Aspirin 325 mg PO DAILY 08/07/16 [History] Isosorbide MONOnitrate (24 HR) [Imdur] 60 mg PO DAILY 08/07/16 [History] Lovastatin 40 mg PO BID 08/07/16 [History] Clopidogrel [Plavix] 75 mg PO DAILY #30 tablet 12/08/17 [Rx] amLODIPine [Norvasc] 5 mg PO DAILY #30 tablet 12/08/17 [Rx] Allergies/Adverse Reactions: 3 Allergy/AdvReac Type Severity Reaction Status Date / Time No Known Allergies Allergy Verified 12/04/17 17:30 Date of admission: 12/05/17 11:51 Primary care physician: Chan Yeung MD Consults: 12/05/17 14:54 Consult to Cardiac Rehabilitation-Phase1 [CONS] Routine Comment: Reason for Consult: AMI Call Completed: Yes Consult to Nurse Navigator [CONS] Routine Comment: - Constitutional Vitals: Temp Pulse Resp BP Pulse Ox 97.4 F L 57 20 114/61 98 12/08/17 16:11 12/08/17 16:11 12/08/17 16:11 12/08/17 16:11 12/08/17 16:11 General appearance: Present: A&O X 3, answers questions appropriately Exam: General appearance: No acute distress, A&O X 3 Head exam: Atraumatic Eye exam: EOMI, PERRLA ENT exam: Moist oral mucosa Neck nontender, supple Respiratory exam: Clear to auscultation bilaterally Cardiovascular exam: Regular rate and rhythm, no systolic murmur Abdominal exam: Soft, nontender, nondistended, positive bowel sounds Extremities exam: No calf tenderness, no pedal edema Present: Skin-no rash, warm, dry, intact Neurological exam: Alert, awake, oriented 3, CN II-XII intact, no focal deficits. No facial droop. Normal speech. Normal gait. - Patient Status Disposition: Home, Self-Care Condition: Good Overall status at discharge: patient is back to baseline - Discharge Instructions Follow Up With: Chan Yeung MD [Primary Care Provider] - (Patient has to make his own follow up per Dr. Florence office) Leisa Aguilera CNP [Partnered Physician] - (Office will call patient at home with follow up) - Diet and Activity Activity: as per the cardiac rehab Diet: low fat, low cholesterol, low salt diet
[2017-12-09] MEDS ORDERED: amLODIPine 5 MG TABLET PO SCH (09:00)
--- NOTE | 2017-12-09 21:25 | Electrocardiograph Report ---
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
--- NOTE | 2017-12-09 21:26 | Electrocardiograph Report ---
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
--- NOTE | 2017-12-09 21:31 | Electrocardiograph Report ---
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
== END 2017-12-08 18:20 | disposition home or self-care (01) | DRG 250 ==
LOC: EMEROO 15:53 → 2NNU 15:53 → SUATTDRO 18:06 → 2NNU 18:48
PROVIDERS: ADMIT Internal Medicine; ATTEND Internal Medicine